=== PATIENT | female | born 1990 | race Caucasian/White ===

== ENCOUNTER 2018-10-17 05:24 | Inpatient (IN) | payer BC ==
[2018-10-17] MEDS ORDERED: NORMAL SALINE 1000 ML 1,000 ML IV ONE ×2 (05:25→06:13)
[2018-10-17] MEDS ORDERED: LORAZEPAM INJ 2 MG/1 ML VIAL IV ONE ×3 (05:26→06:46)
[2018-10-17] MEDS ORDERED: ONDANSETRON HCL INJ/PF 4 MG/2 ML SDV IV ONE (05:31)
--- NOTE | 2018-10-17 05:31 | ER Document Report ---
ED Medical Screen (RME) - General Stated Complaint: POSSIBLE OVERDOSE Notes: Patient is a 27-year-old female that presents to the emergency department for chief complaint of fever and tachycardia. Patient states that she was using methamphetamines earlier today, she smoked them, and she knows she was having a fever, and was not coming down so eventually called EMS per EMS the patient was noted to be febrile, and had a heart rate in the 190s, they administered 2.5 mg of Versed, and gave her Tylenol. Per EMS the patient's heart rate had come down to the 150s after administration of Versed. ROS: Other than noted above, the 12 point review of systems was reviewed with the patient and were negative, all pertinent findings are included in the HPI. PHYSICAL EXAMINATION: Vital signs reviewed. GENERAL: Patient appears anxious on exam, but no immediate distress HEAD: Atraumatic, normocephalic. EYES: Pupils equal round extraocular movements intact, conjunctiva are normal. ENT: Nares patent NECK: Normal range of motion CV: Heart rate tachycardic, regular rhythm LUNGS: No respiratory distress Musculoskeletal: Normal range of motion NEUROLOGICAL: Normal speech PSYCH: Patient is anxious on exam MDM: Patient seen and examined for rapid initial assessment. Vital signs reviewed. A comprehensive ED assessment and evaluation of the patient, analysis of test results and completion of the medical decision making process will be conducted by additional ED providers. *Note is created using voice recognition software and may contain spelling, syntax or grammatical errors.
[2018-10-17 06:07] LABS: HEMATOCRIT 37.3 % (36.0-47.0); HEMOGLOBIN 12.6 g/dL (12.0-15.5); MEAN CORPUSCULAR HGB CONC 33.8 g/dL (32.0-36.0); MEAN CORPUSCULAR VOLUME 83 fl (80-97); PLATELET COUNT 292 10^3/uL (150-450); RED BLOOD COUNT 4.51 10^6/uL (3.72-5.28); RED CELL DISTRIBUTION WIDTH 15.4 % (11.5-14.0); WHITE BLOOD COUNT 16.3 10^3/uL (4.0-10.5)
[2018-10-17 06:11] LABS: ALANINE AMINOTRANSFERASE 75 U/L (9-52); ALBUMIN 3.4 g/dL (3.5-5.0); ALKALINE PHOSPHATASE 64 U/L (38-126); ANION GAP 10 (5-19); ASPARTATE AMINO TRANSFERASE 49 U/L (14-36); BILIRUBIN,DIRECT 0.3 mg/dL (0.0-0.4); BLOOD UREA NITROGEN 20 mg/dL (7-20); CALCIUM 9.2 mg/dL (8.4-10.2); CARBON DIOXIDE 21 mmol/L (22-30); CHLORIDE 106 mmol/L (98-107); CREATINE KINASE 49 U/L (30-135); GLUCOSE 99 mg/dL (75-110); LIPASE 35.4 U/L (23-300); POTASSIUM 3.2 mmol/L (3.6-5.0); SODIUM 137.2 mmol/L (137-145); TOTAL PROTEIN 6.6 g/dL (6.3-8.2)
[2018-10-17] MEDS ORDERED: KETOROLAC TROMETHAMINE INJ/PF 30 MG/1 ML SDV IV ONE (06:14)
[2018-10-17] MEDS ORDERED: VANCOMYCIN HCL INJ 1000 MG VIAL IV ONE (06:16)
[2018-10-17] MEDS ORDERED: CEFTRIAXONE INJ 1000 MG VIAL IV ONE (06:16)
--- NOTE | 2018-10-17 06:18 | RADIOLOGY REPORT (SQ) ---
EXAM DESCRIPTION: XR CHEST 1 VIEW COMPLETED DATE/TME: 10/17/2018 05:26 CLINICAL HISTORY: 27 years, Female, tachycardia Comparison: None FINDINGS: No focal lung consolidation. No pleural effusion. No pneumothorax. Cardiac and mediastinal silhouette is unremarkable. No acute osseous abnormality. Soft tissues are unremarkable. IMPRESSION: No acute findings. No focal lung consolidation.
--- NOTE | 2018-10-17 06:24 | ER Document Report ---
ED General - General Chief Complaint: Possible Overdose Stated Complaint: POSSIBLE OVERDOSE Time Seen by Provider: 10/17/18 06:06 - [facility] Notes: Patient is a 27-year-old female that presents to the emergency department for chief complaint of fever and confusion. Patient presented by EMS from home with report of fevers. She states that for the last week she has had a cough and yesterday she began having fevers. She does not know how high her fever was at home but states "it felt dangerously high". Patient did not have a ride to the hospital which is why she notified EMS. She does endorse methamphetamine use yesterday evening. Patient complaining currently of feeling hot. She states she has a mild bitemporal headache that is throbbing in nature. The headache began yesterday when her fever started. She denies any neck pain or stiffness. She denies any hallucinations. She denies abdominal pain, nausea, vomiting, chest pain and shortness of breath. EMS reported that they were called to the house by patient's friends who were concerned that she was having visual hallucinations after smoking methamphetamine. EMS states that her heart rate at presentation was 190 and she had a temperature of 100.7. Past Medical History: Negative Past Surgical History: D&C Social History: Daily tobacco, daily marijuana, frequent methamphetamine use, denies alcohol Family History: Reviewed and noncontributory for presenting illness Allergies: Reviewed, see documented allergy list. REVIEW OF SYSTEMS: CONSTITUTIONAL : fever No chills diaphoresis recent illness EENT: No vision changes No congestion No sore throat CARDIOVASCULAR: No chest pain No palpitations RESPIRATORY: No shortness of breath cough No difficulty breathing GASTROINTESTINAL: No abdominal pain No nausea No vomiting No diarrhea GENITOURINARY: No dysuria No hematuria No difficulty urinating MUSCULOSKELETAL: No back pain No leg pain No arm pain No neck pain SKIN: No rashes No lesions LYMPHATIC: No swollen, enlarged glands. NEUROLOGICAL: No lightheadedness headache No weakness No paresthesias PSYCHIATRIC: No anxiety No depression PHYSICAL EXAMINATION: Vital signs reviewed, nursing noted reviewed. GENERAL: Well-appearing, well-nourished and in no acute distress. HEAD: Atraumatic, normocephalic. EYES: Eyes appear normal, extraocular movements intact, sclera anicteric, conjunctiva are normal. ENT: nares patent, oropharynx clear without exudates. Moist mucous membranes. NECK: Normal range of motion, supple without lymphadenopathy LUNGS: Breath sounds mild wheezing bilaterally. No accessory muscle use or tachypnea HEART: Tachycardic rate and regular rhythm without murmurs ABDOMEN: Soft, nontender, normoactive bowel sounds. No rebound, guarding, or rigidity. No masses appreciated. EXTREMITIES: Nontender, good range of motion, no pitting or edema. NEUROLOGICAL: No focal neurological deficits. Moves all extremities spontaneously Motor and sensory grossly intact on exam. PSYCH: Tearful, anxious SKIN: Warm, Dry, normal turgor, no rashes or lesions noted on exposed skin Past Medical History - Social History Smoking Status: Current Every Day Smoker Drug Abuse: Methamphetamine Family History: Other - unknown Patient has suicidal ideation: No Patient has homicidal ideation: No Renal/ Medical History: Denies: Hx Peritoneal Dialysis Physical Exam - Vital signs Vitals: Temp Resp 99.9 F 32 H 10/17/18 05:28 10/17/18 05:28 Course - Re-evaluation Re-evalutation: 10/17/18 06:24 Vitals reviewed. Nursing notes reviewed. Patient is awake and mentating appropriately. She is not acutely confused or hallucinating. Temperature at presentation was 99.9. She is significantly tachycardic which may be related to dehydration from fevers and methamphetamine use. Patient was given 1 L normal saline and continues to have a heart rate of 147. Patient will be started on a second liter IV normal saline. Patient given Toradol for continued fever control. Because of the complaint of fevers with confusion and her significant tachycardia patient will be covered with broad-spectrum antibiotics for possible meningitis, she was given Rocephin and vancomycin. Patient's blood pressure currently 100/47 and she is mentating appropriately and protecting her airway. 10/17/18 06:51 Patient reevaluated and has become more agitated. She removed her peripheral IVs and was attempting to leave the emergency room. After discussing my concern for possible meningitis patient is agreeing to stay for further workup. She adamantly believes that she does not have meningitis. She is tearful and agitated still. Patient agreed to have another IV placed. She was given another dose of Ativan for symptomatic management. 10/17/18 07:58 After the second dose of Ativan patient is much calmer. Heart rate has improved to 112. Patient CT brain shows no acute intracranial pathology. She does have a leukocytosis with shift and I am clinically concerned for acute meningitis. I discussed lumbar puncture with patient earlier and prior to the procedure. She did give me verbal consent however she is unable to sign because of the level of sedation from the Ativan she received. Patient requiring lumbar puncture with emergent indication to rule out meningitis. Patient's boyfriend at bedside and procedure was explained to him as well. LP performed without complication, patient lying supine currently in no acute distress. 10/17/18 08:26 Patient's blood pressure has started to decline. She is currently at 88/46. She is somnolent now from medication but will awake to tactile stimuli. Her GCS currently is 10 and she is protecting her airway and not requiring intubation. Her oxygen is 97% on room air and she has normal respirations. Patient's fluids were on 200 and hour and nursing has opened them to continuous wide open bolus. Blood pressure change likely related to catecholamine crash and Ativan. Patient's normal BP is likely in the low 100s given her small frame. Will monitor closely and begin pressors if no response after fluids or BP continues to decline. 10/17/18 09:27 Patient's BP continued to decline. Peripheral Levophed was started and central line was placed. Because of her encephalopathic state she has been trying to bite at the patient monitor. Femoral line was placed because of patient's agitation. She was put in metastases to protect medical equipment. GCS 10. Patient is still protecting her airway and not requiring intubation. Her CSF results are not suggestive of acute meningitis. Urinalysis is still pending. Patient has a normal lactate. 10/17/18 09:42 Patient was taking the mittens off and is still pulling at medical equipment, soft restraints were applied to prevent her from removing her central line and IV. 10/17/18 10:11 Patient's urinalysis shows nitrate positive concerning for acute UTI causing septic shock. She has had 2 episodes of urinary incontinence in the ED and Jett catheter was placed for imobilization and for strict I's and O's. Patient's blood pressure is improved at 100/58 on the levofed. Her care was discussed with Dr. Ford who accepted admission. - Vital Signs Vital signs: Temp Pulse Resp BP Pulse Ox 99.9 F 15 96/60 L 98 10/17/18 05:28 10/17/18 09:45 10/17/18 09:45 10/17/18 09:45 - Laboratory Result Diagrams: 10/17/18 05:24 10/17/18 05:24 Laboratory results interpreted by me: 10/17/18 10/17/18 10/17/18 05:24 05:24 08:45 WBC 16.3 H RDW 15.4 H Seg Neuts % (Manual) 88 H Lymphocytes % (Manual) 4 L Abs Neuts (Manual) 15.0 H Potassium 3.2 L Carbon Dioxide 21 L AST 49 H ALT 75 H Albumin 3.4 L Urine Nitrite POSITIVE H - EKG Interpretation by Me Additional EKG results interpreted by me: 10/17/18 06:26 0530: Sinus tachycardia, rate 147, normal axis, no ectopy Procedures - Central Line Right Femoral Time completed: : Consent obtained: No - emergent Central line pre-insertion: Sterile PPE donned, Chloraprep applied, Sterile drapes applied Central line lumen type: Triple Anesthetic type: 1% Lidocaine mL's of anesthesia: 3 Ultrasound guided: Yes Line secured with sutures: Yes Central line post-insertion: Blood return from lumens, Biopatch applied, Sutured, Sterile dressing applied, Position confirmed w/ CXR Number of attempts: 1 Complications: No - Lumbar Puncture Lumbar puncture Time completed: 07:56 Consent obtained: Yes - verbal Lumbar puncture pre-procedure: Sterile PPE donned, Betadine prep applied, Sterile drapes applied Patient position: Lying Lumbar puncture location: L4 Anesthetic type: 1% Lidocaine w/epi mL's of anesthetic: 2 Amount/type of drainage: 4 mL Number of attempts: 1 Complications: No Notes: 10/17/18 07:57 Patient requiring lumbar puncture to rule out meningitis in the setting of fever and confusion. Verbal consent obtained from patient however she is unable to sign consent because of medication required to control her anxiety and agitation at presentation. LP performed an emergent situation not requiring written consent. Band-Aid placed over puncture site. Critical Care Note - Critical Care Note Total time excluding time spent on procedures (mins): 110 Comments: 110 Minutes of critical care time spent in direct contact evaluating and reevaluating the patient, treating symptoms, reviewing labs and studies and speaking with family and consultants excluding any procedures. Discharge - Discharge Clinical Impression: Septic shock, Encephalopathy, Methamphetamine abuse Urinary tract infection Qualifiers: Urinary tract infection type: site unspecified Hematuria presence: without hematuria Qualified Code(s): N39.0 - Urinary tract infection, site not specified Condition: Stable Disposition: ADMITTED INPATIENT Admitting Provider: Hospitalist Unit Admitted: ICU
[2018-10-17 06:25] LABS: ABSOLUTE LYMPHOCYTES# (MANUAL) 0.7 10^3/uL (0.5-4.7); ABSOLUTE MONOCYTES # (MANUAL) 0.7 10^3/uL (0.1-1.4); BAND NEUTROPHILS % (MANUAL) 4 % (3-5); BASOPHILS % (MANUAL) 0 % (0-2); EOSINOPHILS % (MANUAL) 0 % (0-6); HYPOCHROMASIA SLIGHT; LYMPHOCYTES % (MANUAL) 4 % (13-45); MONOCYTES % (MANUAL) 4 % (3-13); PLATELET COMMENT ADEQUATE; POLYCHROMASIA SLIGHT; SEGMENTED NEUTROPHILS % (MAN) 88 % (42-78); TOTAL CELLS COUNTED 100
[2018-10-17] MEDS ORDERED: LIDOCAINE 1%/EPINEPHRINE INJ 20 ML VIAL INJ ONE (06:25)
[2018-10-17] MEDS ORDERED: POTASSIUM CHLORIDE 10 MEQ CAPSULE.ER PO ONE (06:53)
--- NOTE | 2018-10-17 07:29 | RADIOLOGY REPORT (SQ) ---
EXAM DESCRIPTION: CT of the head without contrast CLINICAL HISTORY: Headache COMPARISON: None available TECHNIQUE: Axial CT of the head obtained from the skull apex to the skull base without contrast. FINDINGS: No acute intracranial hemorrhage identified. No mass, mass effect, shift of the midline, abnormal extra-axial fluid collection or CT evidence of acute ischemic change identified. The ventricular system is unremarkable. No acute abnormalities of the supratentorial white matter, basal ganglia, cerebellum, or brainstem. Mucosal thickening of the paranasal sinuses. No skull fracture identified. Visualized orbits and globes are unremarkable. DLP: 1130.21 mGy-cm IMPRESSION: 1. No acute intracranial abnormality identified. This exam was performed according to our departmental dose-optimization program, which includes automated exposure control, adjustment of the mA and/or kV according to patient size and/or use of iterative reconstruction technique.
[2018-10-17 08:36] LABS: GLUCOSE,CSF 64 mg/dL (40-70); PROTEIN,CSF 40 mg/dL (12-60)
[2018-10-17 09:12] LABS: APPEARANCE ALL TUBES CLEAR; COLOR ALL TUBES COLORLESS; CSF TUBE NUMBER 1; VOLUME TUBE 2 1.5 CC
[2018-10-17 09:13] LABS: CSF TOTAL VOLUME 4.6 CC; RED BLOOD CELL,CSF 1 /uL (0-10); VOLUME TUBE 3 1.1 CC
[2018-10-17 09:14] LABS: WHITE BLOOD CELL,CSF 3 /uL (0-5)
[2018-10-17 09:15] LABS: APPEARANCE ALL TUBES CLEAR; COLOR ALL TUBES COLORLESS; CSF TOTAL VOLUME 4.6 CC; CSF TUBE NUMBER 4; RED BLOOD CELL,CSF 0 /uL (0-10); VOLUME TUBE 2 1.5 CC; VOLUME TUBE 3 1.1 CC
[2018-10-17 09:16] LABS: WHITE BLOOD CELL,CSF 1 /uL (0-5)
[2018-10-17] MEDS: DEXTROSE 5%-WATER 250 ML with NOREPINEPHRINE BITARTRATE 4 MG IV PRN ×4 (09:45→21:38)
[2018-10-17 09:53] LABS: APPEARANCE,URINE CLEAR; BILIRUBIN,URINE NEGATIVE (NEGATIVE); COLOR,URINE YELLOW; GLUCOSE, URINE NEGATIVE (NEGATIVE); KETONES,URINE NEGATIVE (NEGATIVE); LEUKOCYTE ESTERASE,URINE NEGATIVE (NEGATIVE); NITRITE,URINE POSITIVE (NEGATIVE); PROTEIN,URINE NEGATIVE (NEGATIVE); URINE SPECIFIC GRAVITY 1.009; UROBILINOGEN,URINE NEGATIVE mg/dL (<2.0)
--- NOTE | 2018-10-17 09:57 | RADIOLOGY REPORT (SQ) ---
EXAM DESCRIPTION: KUB/ABDOMEN (SINGLE VIEW) COMPLETED DATE/TIME: 10/17/2018 9:46 am REASON FOR STUDY: right femoral line insertion COMPARISON: None. NUMBER OF VIEWS: One view. TECHNIQUE: Supine radiographic image of the abdomen acquired. LIMITATIONS: None. FINDINGS: BOWEL GAS PATTERN: Normal bowel gas pattern. No dilated loops. CALCIFICATIONS: No suspicious calcifications. SOFT TISSUES: No gross mass or suggestion of organomegaly. HARDWARE: None in the abdomen. BONES: No acute fracture. No worrisome bone lesions. OTHER: Vascular catheter projects over the expected location of the right femoral vessels, tip projec ting over the L5 vertebral body in the vicinity of the inferior IVC. IMPRESSION: Vascular catheter projects over the expected location of the right femoral vessels, tip projecting over the L5 vertebral body in the vicinity of the inferior IVC. Consider slight retractio n for placement over the iliac vessels. TECHNICAL DOCUMENTATION: JOB ID: [id number] [employer]- All Rights Reserved Reading location - IP/workstation name: [email or web address]
[2018-10-17 10:22] LABS: URINE BARBITURATES SCREEN NEGATIVE; URINE BENZODIAZEPINES SCREEN UNCONFIRMED POSITIVE; URINE COCAINE SCREEN NEGATIVE; URINE MARIJUANA (THC) SCREEN NEGATIVE; URINE METHADONE SCREEN NEGATIVE; URINE PHENCYCLIDINE SCREEN NEGATIVE
[2018-10-17] MEDS ORDERED: ONDANSETRON HCL INJ/PF 4 MG/2 ML SDV IV PRN (12:26)
[2018-10-17] MEDS ORDERED: ACETAMINOPHEN 650 MG SUPP.RECT PR PRN (12:26)
[2018-10-17] MEDS ORDERED: VANCOMYCIN HCL 0 MG in DEXTROSE 5%-WATER 250 ML IV NR (12:30)
--- NOTE | 2018-10-17 15:05 | PDOC H&P ---
History of Present Illness Admission Date/PCP: 10/17/18 10:22 Patient complains of: Patient presents with acute delirium, low-grade fever, elevated white blood cell count and hypotension. History of Present Illness: Was unable to obtain information from the patient as she was obtunded. I did review available old records but these were minimal. No friends or family were present in the patient's room. YUSRA WATSON is a 27 year old female who was brought to the emergency department by EMS. Friends report that she has had a bad cough for several weeks. They began to note fevers. No actual temperature was noted. The patient reported that it felt very high. The patient also reported methamphetamine use yesterday evening. Other symptoms reported to the emergency room physician include feeling warm, mild bitemporal headache that is throbbing but denies nausea, vomiting, abdominal pain or shortness of breath. EMS reports a low-grade fever of 100.7 F but severe tachycardia with a pulse rate of 190 on the scene. Evaluation in the emergency department revealed acute delirium. Low-grade temperature with hypotension. She did have an altered mental status as well as an elevated white blood cell count. CT scan of the head and lumbar puncture were obtained as well as a chest x-ray. KUB film was also obtained after placement of a femoral central line. The patient was referred to the hospitalist service for admission. Past Medical History Past Medical History: Limited to old records. Cardiac Medical History: Reports: None Pulmonary Medical History: Reports: None EENT Medical History: Reports: None Neurological Medical History: Reports: None Endocrine Medical History: Reports: None Renal/ Medical History: Reports: None Malignancy Medical History: Reports: None GI Medical History: Reports: None Musculoskeltal Medical History: Reports: None Skin Medical History: Reports: None Psychiatric Medical History: Reports: Substance Abuse, Tobacco Dependency Denies: Alcohol Dependency Traumatic Medical History: Reports: None Hematology: Reports: None Infectious Medical History: Reports: None Past Surgical History Past Surgical History: Reports: Other - D&C Social History Information Source: [facility] Records Lives with: Other - Unknown Smoking Status: Current Every Day Smoker Frequency of Alcohol Use: None Hx Recreational Drug Use: Yes Drugs: Marijuana, Other - Methamphetamine Hx Prescription Drug Abuse: No - Advance Directive Resuscitation Status: Full Code Surrogate healthcare decision maker:: No one present for discussion and patient unable to answer question. Family History Family History: Other - Unavailable from the patient. No family or friends present. Parental Family History Reviewed: No - Unavailable from patient Children Family History Reviewed: No - Unavailable from patient Sibling(s) Family History Reviewed.: No - Unavailable from patient Medication/Allergy Home Medications: No Home Medications 10/17/18 Review of Systems ROS unobtainable: Due to mental status Constitutional: PRESENT: other - Obtunded Respiratory: PRESENT: other - Appears to be breathing comfortably. Saturation greater than 90% on room air. Integumentary: ABSENT: diaphoresis, lesions, rash Neurological: PRESENT: other - Obtunded Physical Exam Vital Signs: Temp Pulse Resp BP Pulse Ox 99.9 F 14 91/52 L 99 10/17/18 05:28 10/17/18 12:15 10/17/18 12:15 10/17/18 12:15 Intake & Output 10/16/18 10/17/18 10/18/18 06:59 06:59 06:59 Intake Total 1000 1000 Balance 1000 1000 Weight 57.8 kg General appearance: PRESENT: well-developed, other - Patient is obtunded Head exam: PRESENT: atraumatic, normocephalic Eye exam: PRESENT: conjunctiva pink. ABSENT: scleral icterus Ear exam: PRESENT: normal external ear exam Teeth exam: PRESENT: other - Unable to assess Neck exam: ABSENT: carotid bruit, lymphadenopathy, tenderness Respiratory exam: PRESENT: clear to auscultation dorcas, symmetrical. ABSENT: rales, rhonchi, tachypnea, wheezes Cardiovascular exam: PRESENT: +S1, +S2, tachycardia Pulses: PRESENT: normal radial pulses, normal dorsalis pedis pul GI/Abdominal exam: PRESENT: normal bowel sounds, soft. ABSENT: distended, tenderness Rectal exam: PRESENT: deferred Extremities exam: ABSENT: pedal edema Musculoskeletal exam: PRESENT: normal inspection Neurological exam: PRESENT: other - Obtunded. ABSENT: alert, awake Skin exam: PRESENT: dry, normal color, warm. ABSENT: rash Results Laboratory Results: 10/17/18 05:24 10/17/18 05:24 10/17/18 10/17/18 10/17/18 05:24 05:24 05:24 WBC 16.3 H RBC 4.51 Hgb 12.6 Hct 37.3 MCV 83 MCH 28.0 MCHC 33.8 RDW 15.4 H Plt Count 292 Seg Neutrophils % Not Reportable Lymphocytes % Not Reportable Monocytes % Not Reportable Eosinophils % Not Reportable Basophils % Not Reportable Absolute Neutrophils Not Reportable Absolute Lymphocytes Not Reportable Absolute Monocytes Not Reportable Absolute Eosinophils Not Reportable Absolute Basophils Not Reportable Sodium 137.2 Potassium 3.2 L Chloride 106 Carbon Dioxide 21 L Anion Gap 10 BUN 20 Creatinine 0.84 Est GFR ( Amer) > 60 Est GFR (Non-Af Amer) > 60 Glucose 99 Lactic Acid Calcium 9.2 Total Bilirubin 1.0 AST 49 H ALT 75 H Alkaline Phosphatase 64 Total Protein 6.6 Albumin 3.4 L Lipase 35.4 Serum HCG, Qual NEGATIVE Urine Color Urine Appearance Urine pH Ur Specific [place] Urine Protein Urine Glucose (UA) Urine Ketones Urine Blood Urine Nitrite Ur Leukocyte Esterase Urine WBC (Auto) Fluid Tube Number CSF Volume CSF Appearance CSF Color CSF WBC CSF RBC CSF Glucose CSF Total Protein 10/17/18 10/17/18 10/17/18 06:00 07:52 07:52 WBC RBC Hgb Hct MCV MCH MCHC RDW Plt Count Seg Neutrophils % Lymphocytes % Monocytes % Eosinophils % Basophils % Absolute Neutrophils Absolute Lymphocytes Absolute Monocytes Absolute Eosinophils Absolute Basophils Sodium Potassium Chloride Carbon Dioxide Anion Gap BUN Creatinine Est GFR ( Amer) Est GFR (Non-Af Amer) Glucose Lactic Acid 1.1 Calcium Total Bilirubin AST ALT Alkaline Phosphatase Total Protein Albumin Lipase Serum HCG, Qual Urine Color Urine Appearance Urine pH Ur Specific [place] Urine Protein Urine Glucose (UA) Urine Ketones Urine Blood Urine Nitrite Ur Leukocyte Esterase Urine WBC (Auto) Fluid Tube Number 1 4 CSF Volume 4.6 4.6 CSF Appearance CLEAR CLEAR CSF Color COLORLESS COLORLESS CSF WBC 3 1 CSF RBC 1 0 CSF Glucose CSF Total Protein 10/17/18 10/17/18 07:52 08:45 WBC RBC Hgb Hct MCV MCH MCHC RDW Plt Count Seg Neutrophils % Lymphocytes % Monocytes % Eosinophils % Basophils % Absolute Neutrophils Absolute Lymphocytes Absolute Monocytes Absolute Eosinophils Absolute Basophils Sodium Potassium Chloride Carbon Dioxide Anion Gap BUN Creatinine Est GFR ( Amer) Est GFR (Non-Af Amer) Glucose Lactic Acid Calcium Total Bilirubin AST ALT Alkaline Phosphatase Total Protein Albumin Lipase Serum HCG, Qual Urine Color YELLOW Urine Appearance CLEAR Urine pH 7.0 Ur Specific [place] 1.009 Urine Protein NEGATIVE Urine Glucose (UA) NEGATIVE Urine Ketones NEGATIVE Urine Blood NEGATIVE Urine Nitrite POSITIVE H Ur Leukocyte Esterase NEGATIVE Urine WBC (Auto) 1 Fluid Tube Number CSF Volume CSF Appearance CSF Color CSF WBC CSF RBC CSF Glucose 64 CSF Total Protein 40 10/17/18 10/17/18 05:24 05:24 Creatine Kinase 49 Troponin I < 0.012 Impressions: Chest X-Ray 10/17/18 05:26 IMPRESSION: No acute findings. No focal lung consolidation. Head CT 10/17/18 06:25 IMPRESSION: 1. No acute intracranial abnormality identified. This exam was performed according to our departmental dose-optimization program, which includes automated exposure control, adjustment of the mA and/or kV according to patient size and/or use of iterative reconstruction technique. KUB X-Ray 10/17/18 09:26 IMPRESSION: Vascular catheter projects over the expected location of the right femoral vessels, tip projecting over the L5 vertebral body in the vicinity of the inferior IVC. Consider slight retraction for placement over the iliac vessels. Assessment and Plan - Diagnosis (1) Septic shock Is this a current diagnosis for this admission?: Yes Plan: The patient presents with altered mental status, low-grade fever, leukocytosis and hypotension. She also had abnormal transaminases. She is requiring levo fed. Etiology of shock suspected to be from cystitis. The patient will be on vasopressors. Aggressive fluid resuscitation. Urine and spinal fluid specimens have been sent for culture. Continue to monitor closely and admit to the ICU. (2) Encephalopathy Is this a current diagnosis for this admission?: Yes Plan: Urine drug screen was positive for opiates and benzodiazepines. Methamphetamine screen indeterminate. The encephalopathy is most likely a combination of the substance abuse as well as sepsis. (3) Methamphetamine abuse Is this a current diagnosis for this admission?: Yes Plan: Admitted by patient and supported by friends. We will need to monitor for withdrawal symptoms. (4) Hypokalemia Is this a current diagnosis for this admission?: Yes Plan: Will replenish serum potassium and monitor electrolyte levels. (5) Urinary tract infection Qualifiers: Urinary tract infection type: site unspecified Hematuria presence: without hematuria Qualified Code(s): N39.0 - Urinary tract infection, site not specified Is this a current diagnosis for this admission?: Yes Plan: Urine culture is pending. Specimen was nitrite positive. The patient is currently on antibiotic therapy. We will refine when results of urine, spinal fluid and blood cultures are available. (6) Neutrophilic leukocytosis Is this a current diagnosis for this admission?: Yes Plan: Patient's white blood cell count is 16,000. This is likely due to the sepsis possibly from urinary tract infection. Continue to monitor. Continue antibiotic therapy. (7) Transaminitis Is this a current diagnosis for this admission?: Yes Plan: Mild elevation of transaminases. Continue to monitor. Probably a result of hypotension and decreased perfusion. (8) Substance abuse Is this a current diagnosis for this admission?: Yes Plan: Positive urine screen for opiates and benzodiazepines. These are not reported as regular substances used by the patient. Methamphetamine screen was indeterminate although this information was volunteered by the patient when she was still communicative. - Time Time Spent with patient: 65 minutes Time Spent with patient: 35 or more minutes Medications reviewed and adjusted accordingly: Yes - Inpatient Certification Based on my medical assessment, after consideration of the patient's comorbidities, presenting symptoms, or acuity I expect that the services needed warrant INPATIENT care.: Yes I certify that my determination is in accordance with my understanding of Medicare's requirements for reasonable and necessary INPATIENT services [42 CFR 412.3e].: Yes Medical Necessity: Need For IV Fluids, Need for IV Antibiotics, Risk of Complication if Not Cared For in Hospital
[2018-10-17] MEDS: CHLORPROMAZINE HCL INJ 25 MG/1 ML AMPULE IV SCH ×2 (15:57→22:18)
[2018-10-17] MEDS: HEPARIN SOD (PORCINE) 5,000 UNIT/ML 1 ML SYRINGE SUBCUT SCH ×2 (15:58→21:38)
[2018-10-17] MEDS: VANCOMYCIN HCL 750 MG in DEXTROSE 5%-WATER 250 ML IV SCH (18:08)
[2018-10-17] MEDS: ACETAMINOPHEN 325 MG TABLET PO PRN (21:37)
[2018-10-17] MEDS: FAMOTIDINE INJ/PF 20 MG/2 ML SDV IV SCH (21:37)
[2018-10-17] MEDS ORDERED: DEXTROSE 5%-WATER 250 ML with NOREPINEPHRINE BITARTRATE 4 MG IV PRN ×2 (21:37)
[2018-10-17] MEDS ORDERED: CHLORPROMAZINE HCL INJ 25 MG/1 ML AMPULE ONE (21:59)
--- NOTE | 2018-10-17 23:07 | EKG REPORT ---
SEVERITY:- ABNORMAL ECG - SINUS TACHYCARDIA REPOL ABNRM SUGGESTS ISCHEMIA, DIFFUSE LEADS : Confirmed by: Keli Pollard 17-Oct-2018 23:06:45
[2018-10-18 04:35] LABS: HEMATOCRIT 32.1 % (36.0-47.0); HEMOGLOBIN 10.6 g/dL (12.0-15.5); MEAN CORPUSCULAR HGB CONC 33.1 g/dL (32.0-36.0); MEAN CORPUSCULAR VOLUME 85 fl (80-97); PLATELET COUNT 248 10^3/uL (150-450); RED BLOOD COUNT 3.79 10^6/uL (3.72-5.28); WHITE BLOOD COUNT 23.5 10^3/uL (4.0-10.5)
[2018-10-18 04:58] LABS: ABSOLUTE LYMPHOCYTES# (MANUAL) 2.8 10^3/uL (0.5-4.7); ABSOLUTE MONOCYTES # (MANUAL) 0.9 10^3/uL (0.1-1.4); ABSOLUTE NEUTROPHILS# (MANUAL) 19.7 10^3/uL (1.7-8.2); ANISOCYTOSIS 1+; BASOPHILS % (MANUAL) 0 % (0-2); EOSINOPHILS % (MANUAL) 0 % (0-6); LYMPHOCYTES % (MANUAL) 12 % (13-45); MONOCYTES % (MANUAL) 4 % (3-13); PLATELET COMMENT ADEQUATE; POLYCHROMASIA 1+; SEGMENTED NEUTROPHILS % (MAN) 84 % (42-78); TOTAL CELLS COUNTED 100
[2018-10-18] MEDS: CHLORPROMAZINE HCL INJ 25 MG/1 ML AMPULE IV SCH ×3 (05:03→21:27)
[2018-10-18] MEDS: HEPARIN SOD (PORCINE) 5,000 UNIT/ML 1 ML SYRINGE SUBCUT SCH ×3 (05:03→21:27)
[2018-10-18] MEDS: CEFTRIAXONE 1 GM/D5W RTU 1 GM/50 ML RTUPB IV SCH (05:03)
[2018-10-18] MEDS: VANCOMYCIN HCL 750 MG in DEXTROSE 5%-WATER 250 ML IV SCH ×2 (05:03→18:44)
[2018-10-18 05:29] LABS: ALANINE AMINOTRANSFERASE 54 U/L (9-52); ALBUMIN 2.2 g/dL (3.5-5.0); ALKALINE PHOSPHATASE 48 U/L (38-126); ASPARTATE AMINO TRANSFERASE 25 U/L (14-36); BILIRUBIN,DIRECT 0.2 mg/dL (0.0-0.4); BILIRUBIN,TOTAL 0.2 mg/dL (0.2-1.3); BLOOD UREA NITROGEN 9 mg/dL (7-20); CALCIUM 8.1 mg/dL (8.4-10.2); GLUCOSE 87 mg/dL (75-110); POTASSIUM 3.8 mmol/L (3.6-5.0); TOTAL PROTEIN 4.8 g/dL (6.3-8.2)
[2018-10-18 05:35] LABS: CARBON DIOXIDE 24 mmol/L (22-30); CHLORIDE 115 mmol/L (98-107); SODIUM 142.3 mmol/L (137-145)
[2018-10-18 05:39] LABS: ANION GAP 3 (5-19)
[2018-10-18] MEDS: FAMOTIDINE INJ/PF 20 MG/2 ML SDV IV SCH ×2 (09:14→21:27)
--- NOTE | 2018-10-18 12:01 | PDOC PROGRESS REPORT ---
Subjective Progress Note for:: 10/18/18 Subjective:: Patient seen in the ICU. Nurse reports awake off and on. Current awake, oriented x 3. No po intake this morning, but eating lunch. Received Thorazine at 5.03 am for restlessness. No f/, no cp/sob, no n/v. Denies AGUILERA. Now off Levophed, titrated off at 1 a.m. earlier this morning. Reason For Visit: SEPSIS, CYSTITIS, ACUTE DELIRIUM Physical Exam Vital Signs: Temp Pulse Resp BP Pulse Ox 97.7 F 94 14 99/60 L 98 10/18/18 10:00 10/18/18 10:00 10/18/18 10:18 10/18/18 10:18 10/18/18 10:18 Intake & Output 10/17/18 10/18/18 10/19/18 06:59 06:59 06:59 Intake Total 1000 1626 Output Total 1435 420 Balance 1000 191 -420 Weight 57.8 kg 59.8 kg GENERAL: Well-developed, no acute distress HEENT: Normocephalic/atraumatic NECK supple, no JVD CARDIOVASCULAR: RRR, normal S1-S2, no appreciable murmur LUNGS: CTA bilaterally ABDOMEN: Soft, NT, NL bowel sounds EXTREMITIES: No edema, clubbing, cyanosis NEUROLOGICAL: Alert, oriented x 3, nonfocal Results Laboratory Results: 10/18/18 04:26 10/18/18 04:26 10/18/18 10/18/18 04:26 04:26 WBC 23.5 H RBC 3.79 Hgb 10.6 L Hct 32.1 L MCV 85 MCH 28.0 MCHC 33.1 RDW 16.0 H Plt Count 248 Seg Neutrophils % Not Reportable Lymphocytes % Not Reportable Monocytes % Not Reportable Eosinophils % Not Reportable Basophils % Not Reportable Absolute Neutrophils Not Reportable Absolute Lymphocytes Not Reportable Absolute Monocytes Not Reportable Absolute Eosinophils Not Reportable Absolute Basophils Not Reportable Sodium 142.3 Potassium 3.8 Chloride 115 H Carbon Dioxide 24 Anion Gap 3 L BUN 9 Creatinine 0.69 Est GFR ( Amer) > 60 Est GFR (Non-Af Amer) > 60 Glucose 87 Calcium 8.1 L Magnesium 1.8 Total Bilirubin 0.2 AST 25 ALT 54 H Alkaline Phosphatase 48 Total Protein 4.8 L Albumin 2.2 L 10/17/18 10/17/18 05:24 05:24 Creatine Kinase 49 Troponin I < 0.012 Impressions: Chest X-Ray 10/17/18 05:26 IMPRESSION: No acute findings. No focal lung consolidation. Head CT 10/17/18 06:25 IMPRESSION: 1. No acute intracranial abnormality identified. This exam was performed according to our departmental dose-optimization program, which includes automated exposure control, adjustment of the mA and/or kV according to patient size and/or use of iterative reconstruction technique. KUB X-Ray 10/17/18 09:26 IMPRESSION: Vascular catheter projects over the expected location of the right femoral vessels, tip projecting over the L5 vertebral body in the vicinity of the inferior IVC. Consider slight retraction for placement over the iliac vessels. Assessment and Plan - Diagnosis (1) Septic shock Is this a current diagnosis for this admission?: Yes (2) Encephalopathy Is this a current diagnosis for this admission?: Yes (3) Hypokalemia Is this a current diagnosis for this admission?: Yes (4) Methamphetamine abuse Is this a current diagnosis for this admission?: Yes (5) Substance abuse Is this a current diagnosis for this admission?: Yes (6) Urinary tract infection Qualifiers: Urinary tract infection type: site unspecified Hematuria presence: without hematuria Qualified Code(s): N39.0 - Urinary tract infection, site not specified Is this a current diagnosis for this admission?: Yes - Plan Summary Plan Summary: Blood pressure better but still in the systolic of 90s. She is off pressors, mental status improving. Leukocytosis worsening today, but patient is generally improving. No fevers. We will continue Rocephin for now. There may be a reactive component to the leukocytosis. Will follow CSF, blood and urine culture results. Will continue to monitor in the ICU for 1 more night, consider transferring out in the morning if blood pressure stable, mental status continues to improve. It will also be encouraged if white blood cells is beginning to trend down. Hypokalemia corrected. Follow-up CBC and Chem-7 in a.m.
[2018-10-18] MEDS: ACETAMINOPHEN 325 MG TABLET PO PRN (17:33)
[2018-10-18] MEDS ORDERED: NICOTINE 21 MG/24 HR PATCH.TD24 TD ONE (20:00)
[2018-10-18 21:07] LABS: VANCOMYCIN,TROUGH < 5.0 ug/mL (5.0-20.0)
[2018-10-19] MEDS: VANCOMYCIN HCL 750 MG in DEXTROSE 5%-WATER 250 ML IV SCH ×2 (02:40→09:43)
[2018-10-19 05:03] LABS: ABSOLUTE BASOPHILS # (AUTO) 0.1 10^3/uL (0.0-0.2); ABSOLUTE EOSINOPHILS # (AUTO) 0.2 10^3/uL (0.0-0.6); ABSOLUTE LYMPHOCYTES (AUTO) 2.9 10^3/uL (0.5-4.7); ABSOLUTE MONOCYTES (AUTO) 0.9 10^3/uL (0.1-1.4); ABSOLUTE NEUT (AUTO) 5.6 10^3/uL (1.7-8.2); BASOPHILS % (AUTO) 0.6 % (0-2); EOSINOPHILS % (AUTO) 2.5 % (0-6); HEMATOCRIT 32.1 % (36.0-47.0); HEMOGLOBIN 10.7 g/dL (12.0-15.5); LYMPHOCYTES % (AUTO) 30.2 % (13-45); MEAN CORPUSCULAR HGB CONC 33.3 g/dL (32.0-36.0); MEAN CORPUSCULAR VOLUME 84 fl (80-97); MONOCYTES % (AUTO) 8.9 % (3-13); PLATELET COUNT 262 10^3/uL (150-450); RED BLOOD COUNT 3.81 10^6/uL (3.72-5.28); RED CELL DISTRIBUTION WIDTH 15.6 % (11.5-14.0); SEGMENTED NEUTROPHILS % (AUTO) 57.8 % (42-78); TOTAL CELLS COUNTED % (AUTO) 100 %; WHITE BLOOD COUNT 9.7 10^3/uL (4.0-10.5)
[2018-10-19 05:21] LABS: ALANINE AMINOTRANSFERASE 43 U/L (9-52); ALBUMIN 2.6 g/dL (3.5-5.0); ALKALINE PHOSPHATASE 61 U/L (38-126); ANION GAP 10 (5-19); ASPARTATE AMINO TRANSFERASE 18 U/L (14-36); BILIRUBIN,DIRECT 0.1 mg/dL (0.0-0.4); BILIRUBIN,TOTAL 0.1 mg/dL (0.2-1.3); BLOOD UREA NITROGEN 6 mg/dL (7-20); CALCIUM 8.2 mg/dL (8.4-10.2); CARBON DIOXIDE 20 mmol/L (22-30); CHLORIDE 112 mmol/L (98-107); GLUCOSE 80 mg/dL (75-110); POTASSIUM 3.2 mmol/L (3.6-5.0); SODIUM 142.4 mmol/L (137-145)
[2018-10-19] MEDS ORDERED: POTASSIUM CHLORIDE 10 MEQ CAPSULE.ER PO ONE ×2 (06:00→08:00)
[2018-10-19] MEDS ORDERED: MAGNESIUM SULFATE/D5W 1 GM/100 ML RTUPB IV ONE ×2 (06:20→06:30)
[2018-10-19] MEDS: HEPARIN SOD (PORCINE) 5,000 UNIT/ML 1 ML SYRINGE SUBCUT SCH ×2 (06:22→14:05)
[2018-10-19] MEDS: CEFTRIAXONE 1 GM/D5W RTU 1 GM/50 ML RTUPB IV SCH (06:22)
[2018-10-19] MEDS: CHLORPROMAZINE HCL INJ 25 MG/1 ML AMPULE IV SCH ×2 (06:23→14:04)
[2018-10-19] MEDS: FAMOTIDINE INJ/PF 20 MG/2 ML SDV IV SCH (09:43)
[2018-10-19] MEDS ORDERED: NICOTINE 21 MG/24 HR PATCH.TD24 TD SCH (10:00)
--- NOTE | 2018-10-19 12:30 | PDOC PROGRESS REPORT ---
Subjective Progress Note for:: 10/19/18 Subjective:: Patient seen in the ICU. She is awake, tolerating oral diet. However she reports a current restlessness and "withdraw". She is requesting Suboxone or methadone. Denies crack cocaine use. States she may have taking methamphetamine given to her by a friend but she is not sure. No f/c, no cp/sob, no n/v. Denies AGUILERA. Denies hallucinations. States she is interested in rehab and also needs to talk to mental health specialist. Now off Levophed since 1 a.m. yesterday, 10/18/18 and blood pressure stable. Reason For Visit: SEPSIS, CYSTITIS, ACUTE DELIRIUM Physical Exam Vital Signs: Temp Pulse Resp BP Pulse Ox 98.5 F 91 15 108/60 98 10/19/18 10:00 10/19/18 10:00 10/19/18 10:00 10/19/18 10:00 10/19/18 10:00 Intake & Output 10/18/18 10/19/18 10/20/18 06:59 06:59 06:59 Intake Total 1626 2305 200 Output Total 1435 5285 300 Balance 191 -2980 -100 Weight 59.8 kg 62.2 kg GENERAL: Well-developed, no acute distress HEENT: Normocephalic/atraumatic NECK supple, no JVD CARDIOVASCULAR: RRR, normal S1-S2, no appreciable murmur LUNGS: CTA bilaterally ABDOMEN: Soft, NT, NL bowel sounds EXTREMITIES: No edema, clubbing, cyanosis NEUROLOGICAL: Alert, oriented x 3, nonfocal Results Laboratory Results: 10/19/18 04:47 10/19/18 04:47 10/19/18 10/19/18 10/19/18 04:47 04:47 04:47 WBC 9.7 RBC 3.81 Hgb 10.7 L Hct 32.1 L MCV 84 MCH 28.0 MCHC 33.3 RDW 15.6 H Plt Count 262 Seg Neutrophils % 57.8 Lymphocytes % 30.2 Monocytes % 8.9 Eosinophils % 2.5 Basophils % 0.6 Absolute Neutrophils 5.6 Absolute Lymphocytes 2.9 Absolute Monocytes 0.9 Absolute Eosinophils 0.2 Absolute Basophils 0.1 Sodium 142.4 Potassium 3.2 L Chloride 112 H Carbon Dioxide 20 L Anion Gap 10 BUN 6 L Creatinine 0.65 Est GFR ( Amer) > 60 Est GFR (Non-Af Amer) > 60 Glucose 80 Calcium 8.2 L Magnesium 1.8 Total Bilirubin 0.1 L AST 18 ALT 43 Alkaline Phosphatase 61 Total Protein 5.0 L Albumin 2.6 L 10/17/18 08:45 Catheterized Urine Urine Culture - Final NO GROWTH 2 DAYS 10/17/18 07:52 Cerebral Spinal Fluid - Tube 3 (Csf) Gram Stain - Final 10/17/18 10/17/18 05:24 05:24 Creatine Kinase 49 Troponin I < 0.012 Impressions: Chest X-Ray 10/17/18 05:26 IMPRESSION: No acute findings. No focal lung consolidation. Head CT 10/17/18 06:25 IMPRESSION: 1. No acute intracranial abnormality identified. This exam was performed according to our departmental dose-optimization program, which includes automated exposure control, adjustment of the mA and/or kV according to patient size and/or use of iterative reconstruction technique. KUB X-Ray 10/17/18 09:26 IMPRESSION: Vascular catheter projects over the expected location of the right femoral vessels, tip projecting over the L5 vertebral body in the vicinity of the inferior IVC. Consider slight retraction for placement over the iliac vessels. Assessment and Plan - Diagnosis (1) Septic shock Is this a current diagnosis for this admission?: Yes (2) Encephalopathy Is this a current diagnosis for this admission?: Yes (3) Hypokalemia Is this a current diagnosis for this admission?: Yes (4) Methamphetamine abuse Is this a current diagnosis for this admission?: Yes (5) Substance abuse Is this a current diagnosis for this admission?: Yes (6) Urinary tract infection Qualifiers: Urinary tract infection type: site unspecified Hematuria presence: without hematuria Qualified Code(s): N39.0 - Urinary tract infection, site not specified Is this a current diagnosis for this admission?: Yes (7) Heroin abuse Is this a current diagnosis for this admission?: Yes (8) Restless Is this a current diagnosis for this admission?: Yes - Plan Summary Plan Summary: Blood pressure better and remains off pressors, mental status improved. Leukocytosis also better. No fevers. Will follow CSF, blood and urine culture results. Continue Rocephin for now. Substance abuse and restlessness and request to speak to mental health professional, will consult Dr. Siu. For hypokalemia, patient has received KCl 40 M EQ p.o. x1. Follow-up CBC and Chem-7 in a.m. Will transfer patient out of the ICU to medical bed.
--- NOTE | 2018-10-19 13:31 | PSYCHOLOGICAL NOTE ---
Psych Note - Psych Note Date seen by psych provider: 10/19/18 Time seen by psych provider: 12:55 - Evaluation from [id number]. Psych Note: Reason for Consult: Heroin/Opiate Withdrawal Contact Permissions: OD, Unknown but possibly boyfriend Patient is a 27 year old female who presented to the ED 10/17/18 for fever, confusion and tachycardia after friends called EMS for concerns patient was hallucinating after smoking meth. She was subsequently admitted to hospitalist services for septic shock, encephalopathy, meth abuse, hypokalemia, UTI, neutrophilic leukocytosis, transmaminitis and SA. She is being administered Thorazine 12.5MG IV Q8H for restlessness and withdrawal. Per documentation she requested Suboxone or Methadone. UDS is positive for Opiates, Meth and benzodiazepines (was administered Versed by EMS). Patient admitted she "uses 2-3 bags of heroin a day, IV, has been using for the past 1.5 years and last use was 10/17/18 before she came to the ED." She identified she "had a G Tube when she was 24 so stopped the heroin use, got into a Suboxone program with Dr. Banks at [facility], got off the Suboxone and started using again." She admitted to "smoking meth for recreation, it is not daily." She denied any other MH or SA treatment with the exception of having been to [facility] not long ago because her parents wanted her to go to detox after they found out she was back to using. She denied being seen by the behavioral health team there, said she was monitored and labs done then sent home. She denied being prescribed any other psychiatric medication in the past or current. She reported the following withdrawal symptoms: "restless leg, sneezing, watery eyes, runny nose, I feel like shit, my whole body hurts." When asked about diarrhea she stated "net yet." She denied any seizure history. She stated she was unaware of family history. Patient was alert and oriented to self, person, place, time and situation. Mood was euthymic with congruent affect. There was some restlessness/anxiety. She denied SI/HI. She did not appear to be responding to internal stimuli as evidenced by fair eye contact, answering questions appropriately when addressed, staying on topic, carrying on dialogue conversation and being engaged in evaluation. Thought processes were linear and organized. Conversational speech was within normal limits for rate, tone and prosody. Intellectual abilities are estimated to be average. Insight, judgment and impulse control were fair as evidenced by being honest about drug use. Diagnosis: 292.0 (F11.23) Opioid withdrawal 304.00 (F11.20) Opioid Use Disorder, Severe 304.40 (F15.20) Meth Use Disorder, Moderate to Severe Medication recommendations made by the psychiatric medical provider, Dr. Kip MD., includes: Continue Thorazine 12.5MG IV Q8H Add effexor 37.5MG daily for depression/curb drug cravings/increase energy Add Buspar 10MG twice a day for anxiety/calming effect/act as benzo/depression/sleep Impression/Plan: Patient is cleared from acute psychiatric services. She denied SI/HI and no observed psychosis. She admitted to heroin IV use for past 1.5 years, 2-3 bags daily, last use 10/17/18 and reported withdrawal symptoms. She wanted to get back into a Suboxone Program. Provided outpatient MH resource sheet which highlighted [facility] (noted one in [place] [facility] and they offer Suboxone, IFS MCM for crisis/talk therapy/linkage to other supports/services and [facility]. Stapled [facility] mobile admission business card for detox/rehab services since patient said she has BCBS through parents. Made referral to [facility]. Curt with [facility] was onsite and introduced self to patient. He also made sure face sheet had correct contact information and explained someone would be visiting with her tomorrow. Consulted with Dr. Siu regarding the management and care of patient. Attending hospitalist made aware of recommendations.
[2018-10-19] MEDS ORDERED: VENLAFAXINE HCL 37.5 MG CAP.SR.24H PO SCH (15:00)
[2018-10-19] MEDS ORDERED: VENLAFAXINE HCL 37.5 MG CAP.SR.24H PO ONE (16:26)
[2018-10-19 16:32] VITALS: BP 112/71
[2018-10-19] MEDS ORDERED: BUSPIRONE HCL 10 MG TABLET PO SCH (18:00)
--- NOTE | 2018-10-19 18:40 | PDOC DISCHARGE SUMMARY ---
General - Admit/Disc Date/PCP Admission Date/Primary Care Provider: 10/17/18 10:22 Discharge Date: 10/19/18 - Discharge Diagnosis (1) Septic shock Is this a current diagnosis for this admission?: Yes (2) Encephalopathy Is this a current diagnosis for this admission?: Yes (3) Hypokalemia Is this a current diagnosis for this admission?: Yes (4) Methamphetamine abuse Is this a current diagnosis for this admission?: Yes (5) Substance abuse Is this a current diagnosis for this admission?: Yes (6) Urinary tract infection Is this a current diagnosis for this admission?: Yes (7) Heroin abuse Is this a current diagnosis for this admission?: Yes (8) Restless Is this a current diagnosis for this admission?: Yes - Additional Information Resuscitation Status: Full Code Home Medications: No Home Medications 10/17/18 History of Present Illness History of Present Illness: YUSRA WATSON is a 27 year old female who presented to the ED with headaches, low-grade fever 100.7 and tachycardia. Patient presented apparently in the setting of using methamphetamine. In the ED, she was also found to have leukoc ytosis at 16,000 and subsequently increasing to 23,000. She was also hypotensive and required Levophed drip. Hospital Course Hospital Course: Patient was admitted to ICU. She was managed with IV fluid. There was also concern for UTI she was treated with Rocephin. She also had spinal tap done, but CSF fluid cultures have returned negative. Blood cultures and urine culture have also been negative times 2 days. Leukocytosis also resolved and is now 9 .7. Suspect reactive component to the leukocytosis. Patient doing better, has been titrated off levo fed for over 24 hours now. She reported significant heroin use. She initially stated that she would like rehab, possibly to go from the hospital. She wanted methadone or Suboxone prescribed while she remained in the hospital. She was evaluated by mental health specialist and they made recommendations for treatment with BuSpar, starting Effexor, and treating with Thorazine. However patient was not happy with these, requesting Suboxone or methadone instead. She wished to sign out AMA. She was alert and oriented x3, denied suicidal ideation or homicidal ideation or visual hallucinations. Risks and benefits explained and she verbalized understanding. Patient left AGAINST MEDICAL ADVICE. Physical Exam Vital Signs: Temp Pulse Resp BP Pulse Ox 97.7 F 95 16 112/71 100 10/19/18 16:20 10/19/18 16:20 10/19/18 16:20 10/19/18 16:20 10/19/18 16:20 Intake & Output 10/18/18 10/19/18 10/20/18 06:59 06:59 06:59 Intake Total 1626 2305 600 Output Total 1435 5285 300 Balance 191 -2980 300 Weight 59.8 kg 62.2 kg GENERAL: Well-developed, no acute distress HEENT: Normocephalic/atraumatic NECK supple, no JVD CARDIOVASCULAR: RRR, normal S1-S2, no appreciable murmur LUNGS: CTA bilaterally ABDOMEN: Soft, NT, NL bowel sounds EXTREMITIES: No edema, clubbing, cyanosis NEUROLOGICAL: Alert, oriented x 3, nonfocal Results Laboratory Results: 10/19/18 04:47 10/19/18 04:47 10/19/18 10/19/18 10/19/18 04:47 04:47 04:47 WBC 9.7 RBC 3.81 Hgb 10.7 L Hct 32.1 L MCV 84 MCH 28.0 MCHC 33.3 RDW 15.6 H Plt Count 262 Seg Neutrophils % 57.8 Lymphocytes % 30.2 Monocytes % 8.9 Eosinophils % 2.5 Basophils % 0.6 Absolute Neutrophils 5.6 Absolute Lymphocytes 2.9 Absolute Monocytes 0.9 Absolute Eosinophils 0.2 Absolute Basophils 0.1 Sodium 142.4 Potassium 3.2 L Chloride 112 H Carbon Dioxide 20 L Anion Gap 10 BUN 6 L Creatinine 0.65 Est GFR ( Amer) > 60 Est GFR (Non-Af Amer) > 60 Glucose 80 Calcium 8.2 L Magnesium 1.8 Total Bilirubin 0.1 L AST 18 ALT 43 Alkaline Phosphatase 61 Total Protein 5.0 L Albumin 2.6 L 10/17/18 07:52 Cerebral Spinal Fluid - Tube 3 (Csf) Gram Stain - Final 10/17/18 08:45 Catheterized Urine Urine Culture - Final NO GROWTH 2 DAYS 10/17/18 10/17/18 05:24 05:24 Creatine Kinase 49 Troponin I < 0.012 Impressions: Chest X-Ray 10/17/18 05:26 IMPRESSION: No acute findings. No focal lung consolidation. Head CT 10/17/18 06:25 IMPRESSION: 1. No acute intracranial abnormality identified. This exam was performed according to our departmental dose-optimization program, which includes automated exposure control, adjustment of the mA and/or kV according to patient size and/or use of iterative reconstruction technique. KUB X-Ray 10/17/18 09:26 IMPRESSION: Vascular catheter projects over the expected location of the right femoral vessels, tip projecting over the L5 vertebral body in the vicinity of the inferior IVC. Consider slight retraction for placement over the iliac vessels. Qualifiers - * PATIENT BEING DISCHARGED WITH ANY OF THE FOLLOWING DIAGNOSIS: No
== END 2018-10-19 17:00 | disposition left against medical advice (07) | DRG 871 ==
LOC: ER 05:24 → EH 10:22 → ICU 21:00 → 4N 10-19 16:11
PROVIDERS: ADMIT Hospitalist; ATTEND Internal Medicine
PROC: 06HY33Z Insertion of Infusion Device into Lower Vein, Percutaneous Approach (ICD-10-PCS; principal; 2018-10-17)
PROC: 009U3ZX Drainage of Spinal Canal, Percutaneous Approach, Diagnostic (ICD-10-PCS; 2018-10-17)
DX: A41.9 Sepsis, unspecified organism (principal); R65.21 Severe sepsis with septic shock; N39.0 Urinary tract infection, site not specified; G93.49 Other encephalopathy; F11.23 Opioid dependence with withdrawal; F11.20 Opioid dependence, uncomplicated; F15.20 Other stimulant dependence, uncomplicated; R50.9 Fever, unspecified; E87.6 Hypokalemia; D72.828 Other elevated white blood cell count; R74.0 Nonspecific elevation of levels of transaminase and lactic acid dehydrogenase [LDH]; F17.210 Nicotine dependence, cigarettes, uncomplicated
CPT/HCPCS: 36415; 51701; 51702; 70450; 71045; 74018; 80048; 80053; 80076; 80202; 80307; 81001; 82550; 82945; 83605; 83690; 83735; 84157; 84484; 84703; 85025; 87040; 87070; 87086; 87205; 89050; 93005; 93010; 96361; 96365; 96366; 96367; 96375; 96376; 99291; 99292; C1751; G0480; J0696; J1644; J1885; J2060; J2405; J3230; J3370; J3475; J3490; J7030; J7060; S0028

== ENCOUNTER 2018-10-20 18:12 | Emergency (ER) | payer BC ==
--- NOTE | 2018-10-20 18:14 | ER Document Report ---
ED Medical Screen (RME) - General Stated Complaint: HEADACHE Time Seen by Provider: 10/20/18 18:13 Mode of Arrival: Medic Information source: Emergency Med Personnel Notes: PT PRESENTS VIA EMS FOR AGUILERA. REPORTS HX OF IV DRUG USE, METH, HASNT USED FOR 4 DAYS. WAS SEEN/EVALUATED IN THE ED YESTERDAY, LP WAS DONE, CHECKED OUT AMA. BACK TODAY FOR AGUILERA, DENIES OTHER SX SUCH F/V/D. RECEIVED TYLENOL BY EMS I have greeted and performed a rapid initial assessment of this patient. A comprehensive ED assessment and evaluation of the patient, analysis of test results and completion of the medical decision making process will be conducted by additional ED providers. TRAVEL OUTSIDE OF THE [place] IN LAST 30 DAYS: No - Related Data Allergies/Adverse Reactions: No Known Allergies Allergy (Unverified 10/18/18 07:48) Past Medical History Renal/ Medical History: Denies: Hx Peritoneal Dialysis Past Surgical History: Reports: Other - D&C Physical Exam - Vital signs Vitals: Temp Pulse Resp BP Pulse Ox 98.2 F 77 18 120/56 L 99 10/20/18 18:29 10/20/18 18:29 10/20/18 18:29 10/20/18 18:29 10/20/18 18:29 Course - Vital Signs Vital signs: Temp Pulse Resp BP Pulse Ox 98.2 F 77 18 120/56 L 99 10/20/18 18:29 10/20/18 18:29 10/20/18 18:29 10/20/18 18:29 10/20/18 18:29
[2018-10-20 23:05] LABS: ABSOLUTE EOSINOPHILS # (AUTO) 0.1 10^3/uL (0.0-0.6); ABSOLUTE LYMPHOCYTES (AUTO) 2.5 10^3/uL (0.5-4.7); ABSOLUTE MONOCYTES (AUTO) 0.5 10^3/uL (0.1-1.4); BASOPHILS % (AUTO) 0.5 % (0-2); HEMATOCRIT 36.9 % (36.0-47.0); HEMOGLOBIN 12.4 g/dL (12.0-15.5); LYMPHOCYTES % (AUTO) 30.4 % (13-45); MEAN CORPUSCULAR HEMOGLOBIN 28.3 pg (27.0-33.4); MEAN CORPUSCULAR HGB CONC 33.7 g/dL (32.0-36.0); MEAN CORPUSCULAR VOLUME 84 fl (80-97); MONOCYTES % (AUTO) 6.4 % (3-13); PLATELET COUNT 363 10^3/uL (150-450); RED BLOOD COUNT 4.38 10^6/uL (3.72-5.28); RED CELL DISTRIBUTION WIDTH 15.6 % (11.5-14.0); SEGMENTED NEUTROPHILS % (AUTO) 61.7 % (42-78); TOTAL CELLS COUNTED % (AUTO) 100 %; WHITE BLOOD COUNT 8.2 10^3/uL (4.0-10.5)
[2018-10-20 23:12] LABS: AMORPHOUS SEDIMENT,URINE TRACE /HPF; APPEARANCE,URINE CLOUDY; BILIRUBIN,URINE NEGATIVE (NEGATIVE); COLOR,URINE YELLOW; GLUCOSE, URINE NEGATIVE (NEGATIVE); KETONES,URINE NEGATIVE (NEGATIVE); LEUKOCYTE ESTERASE,URINE NEGATIVE (NEGATIVE); NITRITE,URINE NEGATIVE (NEGATIVE); PROTEIN,URINE NEGATIVE (NEGATIVE); URINE SPECIFIC GRAVITY 1.019; UROBILINOGEN,URINE NEGATIVE mg/dL (<2.0)
[2018-10-20 23:25] LABS: ALANINE AMINOTRANSFERASE 42 U/L (9-52); ALBUMIN 3.7 g/dL (3.5-5.0); ALKALINE PHOSPHATASE 54 U/L (38-126); ANION GAP 10 (5-19); ASPARTATE AMINO TRANSFERASE 15 U/L (14-36); BILIRUBIN,DIRECT 0.1 mg/dL (0.0-0.4); BILIRUBIN,TOTAL 0.4 mg/dL (0.2-1.3); BLOOD UREA NITROGEN 10 mg/dL (7-20); CALCIUM 9.5 mg/dL (8.4-10.2); CARBON DIOXIDE 25 mmol/L (22-30); CHLORIDE 104 mmol/L (98-107); GLUCOSE 86 mg/dL (75-110); POTASSIUM 4.3 mmol/L (3.6-5.0); SODIUM 139.1 mmol/L (137-145)
[2018-10-21] MEDS ORDERED: KETOROLAC TROMETHAMINE INJ/PF 30 MG/1 ML SDV IV ONE (00:55)
[2018-10-21] MEDS ORDERED: METOCLOPRAMIDE HCL INJ/PF 10 MG/2 ML SDV IV ONE (00:55)
--- NOTE | 2018-10-21 01:53 | ER Document Report ---
ED Headache - General Chief Complaint: Headache Stated Complaint: HEADACHE Time Seen by Provider: 10/20/18 18:13 Mode of Arrival: Medic Notes: Patient is a 27-year-old female with past medical history of polysubstance a buse, no other chronic medical problems who presents with a headache. Patient was recently hospitalized on 10/18, left AMA on 10/20. She had initially been hospitalized for fever and confusion. During her evaluation she underwent a lumbar puncture and CT of the head. Lumbar puncture results found to be completely normal, CT the head clear. Patient eventually left AGAINST MEDICAL ADVICE that she was not satisfied with the care she was receiving per her report patient presents today stating that she has had a global, throbbing, moderate to severe intensity headache that has been ongoing since yesterday. She states the headache is worsened by standing, effectively resolves when she lies flat. She denies any confusion, focal weakness, numbness, vomiting or confusion. No head trauma. States that she has a history of headaches but none similar to this in the past. She has not yet followed up with her primary care physician. She states that she has not used any illicit substances since being discharged from the hospital. TRAVEL OUTSIDE OF THE [place] IN LAST 30 DAYS: No - Related Data Allergies/Adverse Reactions: No Known Allergies Allergy (Unverified 10/18/18 07:48) Past Medical History - General Information source: Patient, Emergency Med Personnel - Social History Smoking Status: Current Every Day Smoker Frequency of alcohol use: None Drug Abuse: Heroin, Methamphetamine Family History: Reviewed & Not Pertinent, Other - Unavailable from the patient. No family or friends present. Patient has suicidal ideation: No Patient has homicidal ideation: No Renal/ Medical History: Denies: Hx Peritoneal Dialysis Past Surgical History: Reports: Other - D&C Review of Systems - Review of Systems Notes: Constitutional: Negative for fever. HENT: Negative for sore throat. Eyes: Negative for visual changes. Cardiovascular: Negative for chest pain. Respiratory: Negative for shortness of breath. Gastrointestinal: Negative for abdominal pain, vomiting or diarrhea. Genitourinary: Negative for dysuria. Musculoskeletal: Negative for back pain. Skin: Negative for rash. Neurological: Positive for headache 10 point ROS negative except as marked above and in HPI. Physical Exam - Vital signs Vitals: Temp Pulse Resp BP Pulse Ox 98.2 F 77 18 120/56 L 99 03/25/19 18:29 10/20/18 18:29 10/20/18 18:29 10/20/18 18:29 10/20/18 18:29 Interpretation: Normal Notes: PHYSICAL EXAMINATION: GENERAL: Well-appearing, well-nourished and in no acute distress. HEAD: Atraumatic, normocephalic. EYES: Pupils equal round and reactive to light, extraocular movements intact, sclera anicteric, conjunctiva are normal. ENT: nares patent, oropharynx clear without exudates. Moist mucous membranes. NECK: Normal range of motion, supple without lymphadenopathy, no meningismus LUNGS: Breath sounds clear to auscultation bilaterally and equal. No wheezes rales or rhonchi. HEART: Regular rate and rhythm without murmurs ABDOMEN: Soft, nontender, normoactive bowel sounds. No guarding, no rebound. No masses appreciated. EXTREMITIES: Normal range of motion, no pitting or edema. No cyanosis. NEUROLOGICAL: Face symmetric. Tongue protrudes midline. Extraocular motions intact. Pupils are 2 mm and equally reactive. Normal speech, normal gait. 5 out of 5 strength in both the distal and proximal upper and lower extremities bilaterally. Sensation is grossly intact throughout. Finger to nose testing normal. Pronator drift normal. PSYCH: Normal mood, normal affect. SKIN: Warm, Dry, normal turgor, no rashes or lesions noted. Course - Re-evaluation Re-evalutation: 10/21/18 01:51 Presentation of a headache that appears most consistent with post lumbar pun cture headache. Headache was not maximal in onset, patient has no focal neurologic deficits, no nuchal rigidity, vital signs within normal limits, no papilledema, and patient is overall well in appearance. Headache is positional in nature, not present with the patient is lying flat. Based on clinical history and examination I do not suspect an acute subarachnoid hemorrhage, dural venous sinus thrombosis, acute meningitis, or intercranial mass. Patient did have both a lumbar puncture and CT of the head within the past 3 days which were noted to be unremarkable. Patient had complete resolution of headache with lying flat and receiving Toradol and metoclopramide. At this time will dischar ge with return precautions and follow-up recommendations. Verbal discharge instructions given a the bedside and opportunity for questions given. Medication warnings reviewed. Patient is in agreement with this plan and has verbalized understanding of return precautions and the need for primary care follow-up in the next 24-72 hours. - Vital Signs Vital signs: Temp Pulse Resp BP Pulse Ox 98.7 F 67 18 123/67 99 10/21/18 01:57 10/21/18 01:57 10/21/18 01:57 10/21/18 01:57 10/21/18 01:57 - Laboratory Result Diagrams: 10/20/18 22:50 10/20/18 22:50 Laboratory results interpreted by me: 10/20/18 22:50 RDW 15.6 H Discharge - Discharge Clinical Impression: Post lumbar puncture headache, Substance abuse Headache Qualifiers: Headache type: unspecified Headache chronicity pattern: acute headache Intractability: not intractable Qualified Code(s): R51 - Headache Condition: Good Disposition: HOME, SELF-CARE Additional Instructions: Your headache is likely due to the lumbar puncture that you underwent 3 days ago. These types of headaches can take up to 10 days to resolve completely but generally is all been under 1 week per the best treatment is to lie flat, drink caffeinated substances such as coffee, and use [id number] medications such as Tylenol or ibuprofen. We also discussed today your history of opiate abuse. Please never use opiates of any kind. Over 200 people every day in the [place] from opiate overdoses. Do not become a statistic. You should urgently seek rehab or a similar resource. You can call 8-[facility] to find local resources.
[2018-10-21 01:58] VITALS: BP 123/67
== END 2018-10-21 01:58 | disposition home or self-care (01) ==
LOC: ER 18:12
DX: G97.1 Other reaction to spinal and lumbar puncture (principal); F19.10 Other psychoactive substance abuse, uncomplicated; F17.200 Nicotine dependence, unspecified, uncomplicated
CPT/HCPCS: 99284; 96374; 96375; 36415; 85025; 80053; 81001; J1885; J2765

== ENCOUNTER 2019-01-30 01:05 | Observation (INO) | payer SELFPAY ==
[2019-01-30] MEDS ORDERED: ONDANSETRON HCL INJ/PF 4 MG/2 ML SDV IV ONE (04:38)
[2019-01-30] MEDS ORDERED: MORPHINE SULFATE 10 MG/ML INJ IV ONE ×3 (04:38→06:41)
--- NOTE | 2019-01-30 04:41 | ER Document Report ---
ED Medical Screen (RME) - General Chief Complaint: Insect Bite Stated Complaint: BUG BITE, LEFT SIDE NECK Time Seen by Provider: 01/30/19 04:31 Notes: 28-year-old female chief complaint of swelling, pain, redness to the left side of her neck for the past few days. Area actually popped and started draining a lot of pus out of it. Denies fever or chills. Reports previous history of heroin abuse and she has injected in the same area in the past. Mother at bedside. Patient denies any other complaints. TRAVEL OUTSIDE OF THE [place] IN LAST 30 DAYS: No - Related Data Allergies/Adverse Reactions: No Known Allergies Allergy (Unverified 10/18/18 07:48) Past Medical History Renal/ Medical History: Denies: Hx Peritoneal Dialysis Past Surgical History: Reports: Other - D&C Physical Exam - Vital signs Vitals: Temp Pulse Resp BP Pulse Ox 97.7 F 79 15 94/61 L 97 01/30/19 01:01/30/19 01:01/30/19 01:01/30/19 01:33 01/30/19 01:33 - Skin Skin irregularity: Abscess - There appears to be draining MRSA abscess over the left neck with surrounding cellulitis, patient has difficulty turning her head back and forth Course - Re-evaluation Re-evalutation: Because of patient's difficulty turning her head, pain persisting despite draining, history of IV drug abuse, and the extent of the cellulitis and abscess discussed with mom and patient and decision was made to CAT scan the area to evaluate the neck. I have greeted and performed a rapid initial assessment of this patient. A comprehensive ED assessment and evaluation of the patient, analysis of test results and completion of the medical decision making process will be conducted by additional ED providers. - Vital Signs Vital signs: Temp Pulse Resp BP Pulse Ox 97.7 F 79 15 94/61 L 97 01/30/19 01:01/30/19 01:01/30/19 01:01/30/19 01:01/30/19 01:33
[2019-01-30 05:53] LABS: ABSOLUTE BASOPHILS # (AUTO) 0.1 10^3/uL (0.0-0.2); ABSOLUTE EOSINOPHILS # (AUTO) 0.3 10^3/uL (0.0-0.6); ABSOLUTE LYMPHOCYTES (AUTO) 2.4 10^3/uL (0.5-4.7); ABSOLUTE MONOCYTES (AUTO) 0.7 10^3/uL (0.1-1.4); ABSOLUTE NEUT (AUTO) 3.8 10^3/uL (1.7-8.2); BASOPHILS % (AUTO) 0.9 % (0-2); HEMATOCRIT 40.6 % (36.0-47.0); HEMOGLOBIN 13.2 g/dL (12.0-15.5); LYMPHOCYTES % (AUTO) 33.1 % (13-45); MEAN CORPUSCULAR HEMOGLOBIN 27.6 pg (27.0-33.4); MEAN CORPUSCULAR HGB CONC 32.4 g/dL (32.0-36.0); MEAN CORPUSCULAR VOLUME 85 fl (80-97); MONOCYTES % (AUTO) 10.1 % (3-13); PLATELET COUNT 400 10^3/uL (150-450); RED BLOOD COUNT 4.78 10^6/uL (3.72-5.28); RED CELL DISTRIBUTION WIDTH 16.2 % (11.5-14.0); SEGMENTED NEUTROPHILS % (AUTO) 51.9 % (42-78); TOTAL CELLS COUNTED % (AUTO) 100 %; WHITE BLOOD COUNT 7.3 10^3/uL (4.0-10.5)
[2019-01-30 06:17] LABS: ANION GAP 6 (5-19); BLOOD UREA NITROGEN 8 mg/dL (7-20); CALCIUM 9.1 mg/dL (8.4-10.2); CARBON DIOXIDE 29 mmol/L (22-30); CHLORIDE 105 mmol/L (98-107); GLUCOSE 79 mg/dL (75-110); POTASSIUM 4.8 mmol/L (3.6-5.0); SODIUM 139.6 mmol/L (137-145)
[2019-01-30] MEDS ORDERED: VANCOMYCIN HCL INJ 1000 MG VIAL IV ONE (06:41)
--- NOTE | 2019-01-30 06:52 | ER Document Report ---
ED General - General Chief Complaint: Insect Bite Stated Complaint: BUG BITE, LEFT SIDE NECK Time Seen by Provider: 01/30/19 04:31 Primary Care Provider: GÓMEZ ODOM MD [Primary Care Provider] - Follow up as needed TRAVEL OUTSIDE OF THE [place] IN LAST 30 DAYS: No - HPI Notes: Patient is a 28-year-old female who presents emergency department for evaluation. She states that she developed a large abscess on the left side of her neck. It started 4 days ago. She states it started draining spontaneously. She denies any eugenie fevers or chills. No nausea or vomiting. She has significant amount of pain. She does have a history of IV drug abuse. She admits to injecting heroin in that area, but states that the last time was over 2 weeks ago. - Related Data Allergies/Adverse Reactions: No Known Allergies Allergy (Unverified 10/18/18 07:48) Past Medical History - General Information source: Patient - Social History Smoking Status: Current Every Day Smoker Drug Abuse: Heroin Family History: Reviewed & Not Pertinent, Other - Unavailable from the patient. No family or friends present. Patient has suicidal ideation: No Patient has homicidal ideation: No Renal/ Medical History: Denies: Hx Peritoneal Dialysis Past Surgical History: Reports: Other - D&C Review of Systems - Review of Systems Constitutional: No symptoms reported EENT: No symptoms reported Cardiovascular: No symptoms reported Respiratory: No symptoms reported Gastrointestinal: No symptoms reported Genitourinary: No symptoms reported Musculoskeletal: No symptoms reported Skin: See HPI Neurological/Psychological: No symptoms reported Physical Exam - Vital signs Vitals: Temp Pulse Resp BP Pulse Ox 97.7 F 79 15 94/61 L 97 01/30/19 01:33 01/30/19 01:33 01/30/19 01:33 01/30/19 01:33 01/30/19 01:33 - Notes Notes: Patient is a 28-year-old female who appears her stated age in no acute distress. Vital signs reviewed, please refer to chart. Head is normocephalic, atraumatic. Pupils equal round, reactive to light. Examination of the anterior neck yields a 2 cm circular lesion in her left anterior neck, consistent with open the abscess. There is approximately 6 to 7 cm of surrounding erythema and induration. Small amount of adenopathy noted in the supraclavicular space. Heart is regular rate and rhythm. Lungs are clear to auscultation bilaterally. Abdomen is soft, nontender, normoactive bowel sounds throughout. Extremities without cyanosis, clubbing. Posterior calves are nontender. Peripheral pulses are equal. Skin is warm and dry. Patient is awake, alert, neurological exam is nonfocal. Course - Re-evaluation Re-evalutation: 01/30/19 06:50 Patient presents emergency department for evaluation. She had initial laboratory investigations as ordered through triage. She was given some pain medication as well. I did obtain wound culture as well as blood cultures. Patient was given a dose of IV vancomycin. CT scan of the neck was ordered, report pending at this time. We will continue to follow. 01/30/19 08:42 Consult was placed to Dr. Freeman at 0745. He was in the department evaluating the patient at 805. He did review the CT scans images. It is clear that there is a retained needle in this patient's neck. He went and evaluated the patient, and will admit her for further care. - Vital Signs Vital signs: Temp Pulse Resp BP Pulse Ox 97.6 F 76 16 104/58 L 100 01/30/19 06:00 01/30/19 06:00 01/30/19 06:00 01/30/19 06:00 01/30/19 06:00 - Laboratory Result Diagrams: 01/30/19 05:30 01/30/19 05:30 Laboratory results interpreted by me: 01/30/19 05:30 RDW 16.2 H Discharge - Discharge Clinical Impression: Neck abscess, Retained foreign body Condition: Stable Disposition: ADMITTED OBSERVATION Admitting Provider: Surgicalist - Dr. Freeman Unit Admitted: Surgical Floor Referrals: GÓMEZ ODOM MD [Primary Care Provider] - Follow up as needed
--- NOTE | 2019-01-30 06:55 | RADIOLOGY REPORT (SQ) ---
EXAM DESCRIPTION: CT NECK CHEST WITH IV CONTRAST COMPLETED DATE/TME: 01/30/2019 04:38 CLINICAL HISTORY: 28 years, Female, abscess, neck swelling COMPARISON: None TECHNIQUE: Axial CT images of the neck were obtained after the administration of IV contrast. Sagittal and coronal reformats were performed. DLP 191 Images stored on PACS. All CT scanners at this facility use dose modulation, iterative reconstruction, and/or weight based dosing when appropriate to reduce radiation dose to as low as reasonably achievable (ALARA). [facility]: Dose Right [facility]: CareDose [facility]: Dose Right [facility]: Teradose 4D [facility]: BaroFold LIMITATIONS: None. FINDINGS: There is 1.1 x 0.76 cm abscess along the left side of the neck adjacent to the left sternocleidomastoid muscle at the level of the thyroid cartilage at C6-C7 (axial image 57). There is no concerning asymmetry along the aerodigestive tract. The parotid, submandibular and thyroid glands appear unremarkable. The palatine tonsils appear normal. The prevertebral soft tissues are normal. The parapharyngeal space appears unremarkable. Vascular enhancement is normal. The bones are unremarkable. IMPRESSION: Abscess along the left side of the neck at the level of the thyroid cartilage. TECHNICAL DOCUMENTATION: Quality ID # [id number]: Final reports with documentation of one or more dose reduction techniques (e.g., Automated exposure control, adjustment of the mA and/or kV according to patient size, use of iterative reconstruction technique) copyright 2010 [employer]- All Rights Reserved
--- NOTE | 2019-01-30 08:29 | PDOC H&P ---
History of Present Illness Admission Date/PCP: GÓMEZ ODOM MD Patient complains of: Neck abscess History of Present Illness: YUSRA WATSON is a 28 year old female Who presents to the emergency department via ground rescue complaining of a several day history of left neck swelling, pain, drainage and redness. Patient is a known IV drug abuser and states that she was previously injecting heroin in her left neck then stopped and started on her right neck. Patient was seen in the emergency department where she is found to have a abscess actively draining with ulceration. CT scan of the neck which revealed a superficial soft tissue abscess. Dr. Freeman was consulted, who promptly saw the patient in the emergency department. He reviewed the CT scan and identified a foreign body consistent with a needle fragment in the left neck. Patient was felt to require incision and drainage, debridement foreign body removal in the operating room, and arrangements were made accordingly. Past Medical History Past Medical History: History of encephalopathy, urinary tract infection; IVDA Past Surgical History Past Surgical History: None Past Surgical History: Reports: Other - D&C Social History Information Source: Patient Smoking Status: Current Every Day Smoker Frequency of Alcohol Use: None Hx Recreational Drug Use: Yes Drugs: Heroin, Marijuana, Other Hx Prescription Drug Abuse: Yes Family History Family History: Reviewed & Not Pertinent, Other - Unavailable from the patient. No family or friends present. Parental Family History Reviewed: Yes Children Family History Reviewed: Yes Sibling(s) Family History Reviewed.: Yes Medication/Allergy Home Medications: No Home Medications 10/17/18 Allergies/Adverse Reactions: No Known Allergies Allergy (Unverified 10/18/18 07:48) Review of Systems Constitutional: PRESENT: night sweats, weakness Eyes: ABSENT: visual disturbances Ears: ABSENT: hearing changes Cardiovascular: ABSENT: chest pain, dyspnea on exertion, edema, orthropnea, palpitations Respiratory: ABSENT: cough, hemoptysis Gastrointestinal: ABSENT: abdominal pain, constipation, diarrhea, hematemesis, hematochezia, nausea, vomiting Genitourinary: ABSENT: dysuria, hematuria Musculoskeletal: PRESENT: as per HPI Integumentary: PRESENT: as per HPI Psychiatric: PRESENT: other - History of altered mentation due to sepsis in September 2018 Physical Exam Vital Signs: Temp Pulse Resp BP Pulse Ox 97.6 F 76 16 104/58 L 100 01/30/19 06:00 01/30/19 06:00 01/30/19 06:00 01/30/19 06:00 01/30/19 06:00 Intake & Output 01/29/19 01/30/19 01/31/19 06:59 06:59 06:59 Weight 54 kg General appearance: PRESENT: no acute distress Head exam: PRESENT: normocephalic Eye exam: PRESENT: EOMI Mouth exam: PRESENT: dry mucosa Neck exam: PRESENT: other - Actively draining 1/2 cm open ulcerated radial and wound base of left neck, compartment four, mild cellulitis; anterior aspect of the mid sternocleidomastoid muscle multiple stick sites consistent with venipuncture Respiratory exam: PRESENT: clear to auscultation dorcas Cardiovascular exam: PRESENT: RRR Pulses: PRESENT: normal carotid pulses GI/Abdominal exam: PRESENT: soft Rectal exam: PRESENT: deferred Extremities exam: PRESENT: full ROM Musculoskeletal exam: PRESENT: ambulatory Neurological exam: PRESENT: awake, oriented to person, oriented to place, oriented to time, oriented to situation Psychiatric exam: PRESENT: anxious Skin exam: PRESENT: dry Results Laboratory Results: 01/30/19 05:30 01/30/19 05:30 01/30/19 01/30/19 01/30/19 05:30 05:30 05:30 WBC 7.3 RBC 4.78 Hgb 13.2 Hct 40.6 MCV 85 MCH 27.6 MCHC 32.4 RDW 16.2 H Plt Count 400 Seg Neutrophils % 51.9 Lymphocytes % 33.1 Monocytes % 10.1 Eosinophils % 4.0 Basophils % 0.9 Absolute Neutrophils 3.8 Absolute Lymphocytes 2.4 Absolute Monocytes 0.7 Absolute Eosinophils 0.3 Absolute Basophils 0.1 Sodium 139.6 Potassium 4.8 Chloride 105 Carbon Dioxide 29 Anion Gap 6 BUN 8 Creatinine 0.53 Est GFR ( Amer) > 60 Est GFR (Non-Af Amer) > 60 Glucose 79 Calcium 9.1 Serum HCG, Qual NEGATIVE Impressions: Soft Tissue Neck CT 01/30/19 04:38 IMPRESSION: Abscess along the left side of the neck at the level of the thyroid cartilage. TECHNICAL DOCUMENTATION: Quality ID # 436: Final reports with documentation of one or more dose reduction techniques (e.g., Automated exposure control, adjustment of the mA and/or kV according to patient size, use of iterative reconstruction technique) copyright 2011 [employer]- All Rights Reserved Assessment & Plan - Diagnosis (1) Neck abscess Is this a current diagnosis for this admission?: Yes Plan: Impression: Acute left neck abscess post IVDA, with retained foreign body consistent with a needle fragment; no evidence of sepsis. Recommendations: 1. I reviewed the above assessment with patient and family member. I suggested the patient be kept n.p.o. and taken to the operating room for incision drainage packing, debridement and removal of retained foreign body. This will be performed under general anesthesia. Patient will receive intravenous antibiotics after blood cultures obtained. She may require hospitalization for more than 24 hours. (2) Retained foreign body Is this a current diagnosis for this admission?: Yes (3) Heroin abuse Is this a current diagnosis for this admission?: Yes (4) Substance abuse Is this a current diagnosis for this admission?: Yes - Time Time Spent: 50 to 70 Minutes Critical Time spent with patient: Less than 15 minutes Medications reviewed and adjusted accordingly: Yes Anticipated discharge: Home - Inpatient Certification Based on my medical assessment, after consideration of the patient's comorbidities, presenting symptoms, or acuity I expect that the services needed warrant INPATIENT care.: Yes I certify that my determination is in accordance with my understanding of Medicare's requirements for reasonable and necessary INPATIENT services [42 CFR 412.3e].: Yes Medical Necessity: Need For IV Fluids, Need for Pain Control, Need for IV Antibiotics, Need for Surgery
[2019-01-30] MEDS ORDERED: VANCOMYCIN HCL 0 MG in DEXTROSE 5%-WATER 250 ML IV NR (08:30)
[2019-01-30] MEDS ORDERED: MIDAZOLAM 2 MG/2 ML INJ ONE (13:15)
[2019-01-30] MEDS ORDERED: PROPOFOL INJ 200 MG/20 ML VIAL IV ONE (13:15)
[2019-01-30] MEDS ORDERED: FENTANYL CITRATE INJ/PF 250 MCG/5 ML AMPULE ONE (13:15)
[2019-01-30] MEDS ORDERED: LIDOCAINE 0.5% INJ-PF (5 MG/ML) 50 ML SDV ONE (13:18)
[2019-01-30] MEDS ORDERED: BUPIVACAINE HCL 0.25 % INJ/PF (2.5 MG/1 ML) 30 ML VIAL ONE (13:18)
[2019-01-30] MEDS ORDERED: SUGAMMADEX SODIUM 200 MG/2 ML SDV IV ONE (13:55)
[2019-01-30] MEDS ORDERED: VANCOMYCIN HCL 750 MG in DEXTROSE 5%-WATER 250 ML IV SCH (14:00)
--- NOTE | 2019-01-30 14:03 | Operative Report ---
Operative Report DATE OF SURGERY: 01/30/19 PREOPERATIVE DIAGNOSIS: Left neck abscess and IV drug abuse with retained forei gn body consistent with needle POSTOPERATIVE DIAGNOSIS: Same with thrombosis of the left external jugular vein OPERATION: 1. Focused ultrasound of the left neck. 2. Extraction of foreign body consistent with fragment of 27-gauge needle. 3. Excisional debridement of skin and subcutaneous tissue. 4. Segmental excision of left external jugular v gabrielle SURGEON: NING JUAN ANESTHESIA: GA TISSUE REMOVED OR ALTERED: Foreign body left neck; skin, subcutaneous tissue; po rtion of left external jugular vein COMPLICATIONS: None ESTIMATED BLOOD LOSS: 15 cc INTRAOPERATIVE FINDINGS: See below PROCEDURE: The preop holding her to the main operating room where general anesthesia was induced via endotracheal intubation. The head was tilted to the right, left cervical neck exposed. The area was prepped and draped sterile fashion Surgical plan surgical timeout were conducted. We performed focused ultrasound of the left neck. The retained foreign body consistent with a fragment of a needle was identified successfully. Using hemostats, the 4 to 5 mm fragment of hypodermic needle consistent with 27-gauge was removed. The specimen was disposed of We now anesthetized the perimeter of the open wound. In addition to the open wound, there was several small necrotic areas of skin. All of these areas were excised to create a slightly oblong shaped 2 x 3 cm hole in the skin. Intraoperative specimens were sent for culture, Gram stain and sensitivity. Using blunt dissection, the subcutaneous loculations were broken up. Necrotic chunks of fatty tissue were removed with hemostat. Approximately 3 g of tissue were removed. I performed repeat focused ultrasound of the exposed left external jugular vein. There was no evidence of flow in the vein. I felt that it was in the patient's best interest to resect this portion of vein which was nonfunctional, and highly susceptible to both phlebitis. The proximal and distal ends of the exposed internal jugular vein were clamped, approximately 3 to 4 cm segment of the vein excised, sent to pathology for permanent analysis. Both proximal distal ends of the vein were ligated with 4-0 Prolene suture. The wound was irrigated again several times, then packed with iodoform packing. Gauze 4 x 4 applied. Patient tolerated the procedure well, extubated, taken recovery in stable condition.
[2019-01-30] MEDS ORDERED: FENTANYL CITRATE INJ/PF 100 MCG/2 ML AMPUL ONE (14:12)
[2019-01-30] MEDS: HYDROMORPHONE HCL INJ/PF 2 MG/ML AMPULE ONE ×2 (14:16→14:30)
[2019-01-30] MEDS ORDERED: LORAZEPAM INJ 2 MG/1 ML VIAL ONE (14:16)
[2019-01-30] MEDS ORDERED: ONDANSETRON HCL INJ/PF 4 MG/2 ML SDV IV PRN (14:30)
[2019-01-30] MEDS ORDERED: KETOROLAC TROMETHAMINE INJ/PF 30 MG/1 ML SDV IV PRN (14:30)
[2019-01-30] MEDS ORDERED: MORPHINE SULFATE 10 MG/ML INJ IV PRN (14:38)
[2019-01-30] MEDS ORDERED: MEPERIDINE HCL/PF INJ 25 MG/1 ML DISP.SYRIN IV PRN (14:38)
[2019-01-30] MEDS ORDERED: FENTANYL CITRATE INJ/PF 100 MCG/2 ML AMPUL IV PRN ×3 (14:38)
[2019-01-30] MEDS ORDERED: DIPHENHYDRAMINE HCL 50 MG/ML VIAL IV PRN (14:38)
[2019-01-30] MEDS ORDERED: OXYCODONE-ACETAMINOPHEN 5-325 MG TABLET PO PRN ×2 (14:38)
[2019-01-30] MEDS ORDERED: PROMETHAZINE HCL INJ 25 MG/1 ML VIAL IV PRN ×2 (14:38)
[2019-01-30] MEDS ORDERED: DEXAMETHASONE SOD PHOSPHATE INJ 4 MG/1 ML VIAL ONE (14:49)
[2019-01-30] MEDS ORDERED: ROCURONIUM BROMIDE INJ 50 MG/5 ML VIAL IV ONE (14:49)
[2019-01-30] MEDS ORDERED: NEOSTIGMINE METHYLSULFATE 10 MG/10 ML VIAL ONE (14:49)
[2019-01-30] MEDS ORDERED: LIDOCAINE 2% INJ-PF (20 MG/ML) 2 ML AMPUL ONE (14:49)
[2019-01-30] MEDS ORDERED: ONDANSETRON HCL INJ/PF 4 MG/2 ML SDV ONE (14:49)
[2019-01-30] MEDS ORDERED: GLYCOPYRROLATE 1 MG/5 ML VIAL ONE (14:49)
[2019-01-30] MEDS: VANCOMYCIN HCL 750 MG in DEXTROSE 5%-WATER 250 ML IV SCH (17:16)
[2019-01-30] MEDS: RINGERS SOLUTION,LACTATED 1,000 ML IV PRN (17:17)
[2019-01-30] MEDS ORDERED: NALOXONE HCL INJ/PF 0.4 MG/1 ML SDV ONE (18:24)
[2019-01-30] MEDS ORDERED: NALOXONE HCL INJ/PF 0.4 MG/1 ML SDV IV ONE (18:45)
[2019-01-31] MEDS: VANCOMYCIN HCL 750 MG in DEXTROSE 5%-WATER 250 ML IV SCH (02:05)
[2019-01-31] MEDS: RINGERS SOLUTION,LACTATED 1,000 ML IV PRN (07:22)
--- NOTE | 2019-01-31 08:55 | PDOC DISCHARGE SUMMARY ---
General - Admit/Disc Date/PCP Admission Date/Primary Care Provider: 01/30/19 08:51 GÓMEZ ODOM MD Discharge Date: 01/31/19 - Discharge Diagnosis (1) Neck abscess Is this a current diagnosis for this admission?: Yes (2) Retained foreign body Is this a current diagnosis for this admission?: Yes - Additional Information Resuscitation Status: Full Code Discharge Diet: As Tolerated Discharge Activity: Activity As Tolerated Home Medications: No Home Medications 01/30/19 History of Present Illness History of Present Illness: YUSRA WATSON is a 28 year old female admitted for a left neck abscess. She was taken to the operating room where drainage of her left neck abscess was performed with debridement of nonviable tissue. Patient was taken to the floor in stable condition after her operation. Hospital Course Hospital Course: The patient is done well after her surgery. Her erythema and induration are much improved. She is ambulating in the hallway. She is tolerating a diet. The patient is requesting discharge home. I feel she is medically stable for discharge. Discharge with Bactrim DS, 2 tabs p.o. twice daily. I have discussed dressing changes with the patient. She is comfortable with performing dressing changes at home, without the assistance of home health. I will have her follow-up with [facility] in 1 week for monitoring the left neck wound. Physical Exam Vital Signs: Temp Pulse Resp BP Pulse Ox 98.4 F 85 18 113/57 L 100 01/31/19 07:32 01/31/19 07:32 01/31/19 07:32 01/31/19 07:32 01/31/19 07:32 Intake & Output 01/30/19 01/31/19 02/01/19 06:59 06:59 06:59 Intake Total 3657 Output Total 0 Balance 3657 Weight 54 kg 54 kg Results Laboratory Results: 01/30/19 05:30 01/30/19 05:30 Impressions: Soft Tissue Neck CT 01/30/19 04:38 IMPRESSION: Abscess along the left side of the neck at the level of the thyroid cartilage. TECHNICAL DOCUMENTATION: Quality ID # 436: Final reports with documentation of one or more dose reduction techniques (e.g., Automated exposure control, adjustment of the mA and/or kV according to patient size, use of iterative reconstruction technique) copyright 2011 [employer]- All Rights Reserved Qualifiers - * PATIENT BEING DISCHARGED WITH ANY OF THE FOLLOWING DIAGNOSIS: No Acute Heart Failure - Is this a Heart Failure Patient?: No Plan Time Spent: Less than 30 Minutes
[2019-01-31 14:32] VITALS: BP 104/58
== END 2019-01-31 10:44 | disposition home or self-care (01) ==
LOC: ER 01:05 → EH 08:51 → 4N 10:42
PROVIDERS: ADMIT Surgery; ATTEND Surgery
PROC: 05B Upper Veins, Excision (ICD-10-PCS; 2019-01-30)
PROC: 0JB50ZZ Excision of Left Neck Subcutaneous Tissue and Fascia, Open Approach (ICD-10-PCS; 2019-01-30)
PROC: 0JC50ZZ Extirpation of Matter from Left Neck Subcutaneous Tissue and Fascia, Open Approach (ICD-10-PCS; principal; 2019-01-30 12:00)
DX: L02.11 Cutaneous abscess of neck (principal); M79.5 Residual foreign body in soft tissue; I82.C12 Acute embolism and thrombosis of left internal jugular vein; F11.10 Opioid abuse, uncomplicated; I77.6 Arteritis, unspecified; L03.221 Cellulitis of neck; R61 Generalized hyperhidrosis; F17.200 Nicotine dependence, unspecified, uncomplicated; R53.1 Weakness; R59.0 Localized enlarged lymph nodes
CPT/HCPCS: 36415; 87040; 87070; 87205; 84703; 85025; 87075; 87077; 80048; 87186; 88305 ×2; 70491; 00300; 10120; 37799; 11042; G0378 ×3; J2250; J3490 ×4; J1100; J3010; J1885; J2270; J2310; J2710; J1170; J2060; J2405; J7060 ×2; J7120 ×2; J2704; J3370 ×2; 300

== ENCOUNTER 2019-04-25 19:09 | Inpatient (IN) | payer SELFPAY ==
[2019-04-25] MEDS ORDERED: VANCOMYCIN HCL INJ 1000 MG VIAL IV ONE (20:13)
--- NOTE | 2019-04-25 20:14 | ER Document Report ---
ED Medical Screen (RME) - General Chief Complaint: Neck Swelling Stated Complaint: SWOLLEN NECK Time Seen by Provider: 04/25/19 20:11 Primary Care Provider: GÓMEZ ODOM MD [Primary Care Provider] - Follow up as needed Mode of Arrival: Ambulatory Notes: Patient with a large area of induration and overlying erythema to right side of neck. Patient reports fever at home of 104. Patient states she has had tenderness and swelling for the past 3 days. Patient does have a history of previous IV drug use in which she would inject in the neck. Patient states she has not used drugs in over a month. I have greeted and performed a rapid initial assessment of this patient. A comprehensive ED assessment and evaluation of the patient, analysis of test results and completion of the medical decision making process will be conducted by additional ED providers. TRAVEL OUTSIDE OF THE [place] IN LAST 30 DAYS: No - Related Data Allergies/Adverse Reactions: No Known Allergies Allergy (Unverified 10/18/18 07:48) Past Medical History Renal/ Medical History: Denies: Hx Peritoneal Dialysis Psychiatric Medical History: Denies: Hx Depression Past Surgical History: Reports: Other - D&C Physical Exam - Vital signs Vitals: Temp Pulse Resp BP Pulse Ox 98.0 F 99 16 119/70 100 04/25/19 19:28 04/25/19 19:28 04/25/19 19:28 04/25/19 19:28 04/25/19 19:28 - General Notes: Large erythematous tender indurated swollen area to right side of neck, no submental or sublingual swelling Course - Vital Signs Vital signs: Temp Pulse Resp BP Pulse Ox 98.0 F 99 16 119/70 100 04/25/19 19:28 04/25/19 19:28 04/25/19 19:28 04/25/19 19:28 04/25/19 19:28 Doctor's Discharge - Discharge Referrals: GÓMEZ ODOM MD [Primary Care Provider] - Follow up as needed
[2019-04-25 20:44] LABS: ABSOLUTE BASOPHILS # (AUTO) 0.1 10^3/uL (0.0-0.2); ABSOLUTE EOSINOPHILS # (AUTO) 0.2 10^3/uL (0.0-0.6); ABSOLUTE LYMPHOCYTES (AUTO) 2.5 10^3/uL (0.5-4.7); ABSOLUTE MONOCYTES (AUTO) 1.6 10^3/uL (0.1-1.4); ABSOLUTE NEUT (AUTO) 11.6 10^3/uL (1.7-8.2); BASOPHILS % (AUTO) 0.6 % (0-2); HEMATOCRIT 41.2 % (36.0-47.0); HEMOGLOBIN 13.4 g/dL (12.0-15.5); LYMPHOCYTES % (AUTO) 15.7 % (13-45); MEAN CORPUSCULAR HEMOGLOBIN 27.7 pg (27.0-33.4); MEAN CORPUSCULAR HGB CONC 32.4 g/dL (32.0-36.0); MEAN CORPUSCULAR VOLUME 85 fl (80-97); MONOCYTES % (AUTO) 10.3 % (3-13); PLATELET COUNT 341 10^3/uL (150-450); RED BLOOD COUNT 4.82 10^6/uL (3.72-5.28); SEGMENTED NEUTROPHILS % (AUTO) 72.4 % (42-78); TOTAL CELLS COUNTED % (AUTO) 100 %
[2019-04-25 21:00] LABS: ALBUMIN 4.1 g/dL (3.5-5.0); ALKALINE PHOSPHATASE 55 U/L (38-126); ANION GAP 8 (5-19); ASPARTATE AMINO TRANSFERASE 22 U/L (14-36); BILIRUBIN,DIRECT 0.1 mg/dL (0.0-0.4); BILIRUBIN,TOTAL 0.4 mg/dL (0.2-1.3); BLOOD UREA NITROGEN 6 mg/dL (7-20); CALCIUM 9.5 mg/dL (8.4-10.2); CARBON DIOXIDE 29 mmol/L (22-30); CHLORIDE 101 mmol/L (98-107); GLUCOSE 104 mg/dL (75-110); POTASSIUM 5.4 mmol/L (3.6-5.0); TOTAL PROTEIN 7.6 g/dL (6.3-8.2)
[2019-04-25] MEDS ORDERED: MORPHINE SULFATE 10 MG/ML INJ IV ONE ×2 (21:15→23:46)
--- NOTE | 2019-04-25 22:57 | RADIOLOGY REPORT (SQ) ---
EXAM DESCRIPTION: [facility]: CT NECK WITH IV CONTRAST CLINICAL HISTORY: 28 years Female; abscess R side of neck TECHNIQUE: CT soft tissue neck with contrast. All CT scans at this facility use dose modulation, iterative reconstruction, and/or weight based dosing when appropriate to reduce radiation dose to as low as reasonably achievable. COMPARISON: None. FINDINGS: In the mid lateral right neck, there is diffuse soft tissue edema with skin thickening. At the anterolateral margin of the midportion of the right sternocleidomastoid muscle there is a peripherally enhancing fluid collection 1.7 cm LR by 2.3 cm AP by 3 cm SI. This measurement includes an enhancing septation that runs partially through the fluid collection. The collection is in the soft tissues lateral to the muscle as well as directly involving the muscle. There are multiple reactive right-sided lymph nodes. No sheryl necrosis. Major arteries and veins of the neck remain patent. No airway compromise. Paranasal sinuses and mastoid air cells are clear. Epiglottis is normal. No parapharyngeal or retropharyngeal fluid collection/edema. IMPRESSION: 1. Abscess along the anterolateral margin of the right sternocleidomastoid muscle. 2. Reactive adenopathy and diffuse cellulitis in the right neck
--- NOTE | 2019-04-25 23:27 | ER Document Report ---
ED Skin Rash/Insect Bite/Abscs - General Chief Complaint: Skin Sore(s) Stated Complaint: SWOLLEN NECK Time Seen by Provider: 04/25/19 20:11 Primary Care Provider: GÓMEZ ODOM MD [Primary Care Provider] - Follow up as needed Mode of Arrival: Ambulatory TRAVEL OUTSIDE OF THE [place] IN LAST 30 DAYS: No - HPI Notes: This is a 28-year-old female who presents today with complaint of swelling of her right anterolateral neck for the past 3 days. Patient admits to history of IVDA with her right external jugular vein as a preferred site. However, she tells me that she has not used in about a month for a month and a half. She denies any fever or chills. She denies any trauma. Denies any other complaints. - Related Data Allergies/Adverse Reactions: No Known Allergies Allergy (Unverified 10/18/18 07:48) Past Medical History - Social History Smoking Status: Current Every Day Smoker Family History: Reviewed & Not Pertinent, Other - Unavailable from the patient. No family or friends present. Patient has suicidal ideation: No Patient has homicidal ideation: No Renal/ Medical History: Denies: Hx Peritoneal Dialysis Psychiatric Medical History: Reports: Hx Depression Past Surgical History: Reports: Other - D&C Review of Systems - Review of Systems Constitutional: denies: Fever Respiratory: denies: Cough Gastrointestinal: denies: Abdominal pain Musculoskeletal: Neck pain Skin: Other - Abscess -: Yes All other systems reviewed and negative Physical Exam - Vital signs Vitals: Temp Pulse Resp BP Pulse Ox 98.0 F 99 16 119/70 100 04/25/19 19:28 04/25/19 19:28 04/25/19 19:28 04/25/19 19:28 04/25/19 19:28 - HEENT Neck: Other - There is erythema, swelling and induration of the right anterolateral neck consistent with an abscess. I believe the site is likely the external jugular vein. Airways patent. - Respiratory Respiratory status: No respiratory distress Chest status: Nontender Breath sounds: Normal Chest palpation: Normal - Cardiovascular Rhythm: Regular Heart sounds: Normal auscultation Murmur: No - Abdominal Inspection: Normal Distension: No distension Bowel sounds: Normal Tenderness: Nontender Organomegaly: No organomegaly - Skin Skin Temperature: Warm - Right neck abscess as discussed in HEENT exam. Skin Moisture: Dry Skin Color: Normal Course - Re-evaluation Re-evalutation: 04/25/19 23:26 Clinical picture is suggestive of right neck abscess likely secondary to IVDA. Will get soft tissue CT neck. [id number] Patient's care discussed with Dr. Ponce, surgery. He will evaluate the patient at this time. Labs and CT reviewed and discussed. 04/25/19 23:40 Patient has been seen by the surgeon. Patient will be going to the operating room. - Vital Signs Vital signs: Temp Pulse Resp BP Pulse Ox 98.0 F 99 16 119/70 100 04/25/19 19:28 04/25/19 19:28 04/25/19 19:28 04/25/19 19:28 04/25/19 19:28 - Laboratory Result Diagrams: 04/25/19 20:30 04/25/19 20:30 Laboratory results interpreted by me: 04/25/19 04/25/19 20:30 20:30 WBC 16.0 H RDW 15.0 H Absolute Neuts (auto) 11.6 H Absolute Monos (auto) 1.6 H Potassium 5.4 H BUN 6 L Discharge - Discharge Clinical Impression: Cellulitis and abscess of neck Condition: Stable Disposition: ADMITTED INPATIENT Admitting Provider: Surgicalist Unit Admitted: OR Referrals: GÓMEZ ODOM MD [Primary Care Provider] - Follow up as needed
--- NOTE | 2019-04-25 23:39 | PDOC H&P ---
History of Present Illness Admission Date/PCP: GÓMEZ ODOM MD Patient complains of: neck pain History of Present Illness: YUSRA WATSON is a 28 year old female Patient with a large area of induration and overlying erythema to right side of neck. Patient reports fever at home of 104. Patient states she has had tenderness and swelling for the past 3 days. Patient does have a history of previous IV drug use in which she would inject in the neck. Patient states she has not used drugs in over a month Also complains of shaking chills Past Medical History Psychiatric Medical History: Reports: Depression Past Surgical History Past Surgical History: Reports: Other - D&C previous I&D of neck abscess left neck Social History Smoking Status: Current Every Day Smoker Frequency of Alcohol Use: None Hx Recreational Drug Use: Yes Drugs: Heroin, Marijuana Hx Prescription Drug Abuse: No Family History Family History: Reviewed & Not Pertinent, Other - Unavailable from the patient. No family or friends present. Parental Family History Reviewed: No Children Family History Reviewed: NA Sibling(s) Family History Reviewed.: NA Medication/Allergy Home Medications: No Home Medications 01/30/19 Allergies/Adverse Reactions: No Known Allergies Allergy (Unverified 10/18/18 07:48) Review of Systems Constitutional: PRESENT: anorexia, chills, fatigue Eyes: ABSENT: as per HPI, visual disturbances, other Ears: ABSENT: as per HPI, hearing changes, other Nose, Mouth, and Throat: PRESENT: sore throat Breasts: ABSENT: as per HPI, other Cardiovascular: ABSENT: as per HPI, chest pain, dyspnea on exertion, edema, orthropnea, palpitations, other Respiratory: ABSENT: as per HPI, cough, dyspnea, hemoptysis, sputum, other Gastrointestinal: ABSENT: as per HPI, abdominal pain, bloating, coffee ground emesis, constipation, diarrhea, dysphagia, heartburn, hematemesis, hematochezia, melena, nausea, vomiting, other Genitourinary: ABSENT: as per HPI, difficulty urinating, dysuria, hematuria, nocturia, other Musculoskeletal: ABSENT: as per HPI, back pain, deformity, joint swelling, muscle weakness, other Integumentary: PRESENT: diaphoresis Neurological: ABSENT: as per HPI, abnormal gait, abnormal movements, abnormal speech, confusion, convulsions, dizziness, focal weakness, frequent falls, lack of coordination, memory loss, numbness, paresthesias, restless legs, syncope, tingling, tremor(s), vertigo, weakness, other Psychiatric: ABSENT: as per HPI, anxiety, depression, hallucinations, homidical ideation, suicidal ideation, other Endocrine: ABSENT: as per HPI, cold intolerance, flushing, heat intolerance, menstrual abnormalities, polydipsia, polyphagia, polyuria, other Hematologic/Lymphatic: ABSENT: as per HPI, easy bleeding, easy bruising, lymphadenopathy, other Allergic/Immunologic: ABSENT: as per HPI, seasonal rhinorrhea, other Physical Exam Vital Signs: Temp Pulse Resp BP Pulse Ox 98.0 F 99 16 119/70 100 04/25/19 19:28 04/25/19 19:28 04/25/19 19:28 04/25/19 19:28 04/25/19 19:28 Intake & Output 04/24/19 04/25/19 04/26/19 06:59 06:59 06:59 Weight 54 kg General appearance: PRESENT: mild distress Head exam: PRESENT: normocephalic Eye exam: PRESENT: EOMI Ear exam: PRESENT: TM's normal bilaterally Mouth exam: PRESENT: moist Teeth exam: PRESENT: other Throat exam: PRESENT: other - Centimeter area of induration over the anterior sternocleidomastoid muscle on the right neck with surrounding cellulitis extending up and down the neck. Respiratory exam: PRESENT: clear to auscultation dorcas Cardiovascular exam: PRESENT: RRR Pulses: PRESENT: normal radial pulses, normal femoral pulses GI/Abdominal exam: PRESENT: soft Rectal exam: PRESENT: deferred Extremities exam: PRESENT: full ROM Musculoskeletal exam: PRESENT: full ROM Neurological exam: PRESENT: alert, awake, oriented to person, oriented to place Psychiatric exam: PRESENT: appropriate affect Skin exam: PRESENT: dry Results Laboratory Results: 04/25/19 20:30 04/25/19 20:30 04/25/19 04/25/19 04/25/19 20:30 20:30 20:30 WBC 16.0 H RBC 4.82 Hgb 13.4 Hct 41.2 MCV 85 MCH 27.7 MCHC 32.4 RDW 15.0 H Plt Count 341 Seg Neutrophils % 72.4 Sodium 138.3 Potassium 5.4 H Chloride 101 Carbon Dioxide 29 Anion Gap 8 BUN 6 L Creatinine 0.81 Est GFR ( Amer) > 60 Glucose 104 Calcium 9.5 Total Bilirubin 0.4 AST 22 Alkaline Phosphatase 55 Total Protein 7.6 Albumin 4.1 Serum HCG, Qual NEGATIVE Impressions: Soft Tissue Neck CT 04/25/19 20:12 IMPRESSION: 1. Abscess along the anterolateral margin of the right sternocleidomastoid muscle. 2. Reactive adenopathy and diffuse cellulitis in the right neck Assessment & Plan - Plan Summary Plan Summary: Patient with a large right neck abscess fever of 104 surrounding cellulitis Plan operative exploration incision and drainage of right neck abscess. Risks and benefits of been discussed with the patient which include bleeding infection pulmonary embolism stroke microinfarction specific to the operation she understands she could develop weakness in the right arm and shoulder from spinal accessory nerve injury weakness and down the right arm from injury to the brachial plexus. Thoracic duct injury lymphatic leak is also been discussed with her and she understands that he understands he may need additional surgery. These risks and benefits of been discussed with her she und erstands and agrees to proceed
[2019-04-25] MEDS ORDERED: VANCOMYCIN HCL 0 MG in DEXTROSE 5%-WATER 250 ML IV NR (23:45)
[2019-04-26] MEDS: KETOROLAC TROMETHAMINE INJ/PF 30 MG/1 ML SDV IV PRN ×2 (02:47→08:26)
[2019-04-26 06:03] LABS: ABSOLUTE BASOPHILS # (AUTO) 0.1 10^3/uL (0.0-0.2); ABSOLUTE EOSINOPHILS # (AUTO) 0.2 10^3/uL (0.0-0.6); ABSOLUTE LYMPHOCYTES (AUTO) 3.3 10^3/uL (0.5-4.7); ABSOLUTE MONOCYTES (AUTO) 1.7 10^3/uL (0.1-1.4); ABSOLUTE NEUT (AUTO) 11.5 10^3/uL (1.7-8.2); BASOPHILS % (AUTO) 0.7 % (0-2); EOSINOPHILS % (AUTO) 1.3 % (0-6); HEMATOCRIT 40.1 % (36.0-47.0); HEMOGLOBIN 13.1 g/dL (12.0-15.5); LYMPHOCYTES % (AUTO) 19.7 % (13-45); MEAN CORPUSCULAR HEMOGLOBIN 27.3 pg (27.0-33.4); MEAN CORPUSCULAR HGB CONC 32.6 g/dL (32.0-36.0); MEAN CORPUSCULAR VOLUME 84 fl (80-97); PLATELET COUNT 356 10^3/uL (150-450); RED BLOOD COUNT 4.78 10^6/uL (3.72-5.28); RED CELL DISTRIBUTION WIDTH 15.1 % (11.5-14.0); SEGMENTED NEUTROPHILS % (AUTO) 68.3 % (42-78); TOTAL CELLS COUNTED % (AUTO) 100 %; WHITE BLOOD COUNT 16.9 10^3/uL (4.0-10.5)
[2019-04-26 06:23] LABS: ANION GAP 6 (5-19); BLOOD UREA NITROGEN 6 mg/dL (7-20); CALCIUM 8.7 mg/dL (8.4-10.2); CARBON DIOXIDE 27 mmol/L (22-30); CHLORIDE 104 mmol/L (98-107); GLUCOSE 93 mg/dL (75-110)
[2019-04-26 06:36] LABS: POTASSIUM 3.7 mmol/L (3.6-5.0)
[2019-04-26] MEDS ORDERED: HYDROMORPHONE HCL INJ/PF 2 MG/ML AMPULE ONE (08:27)
[2019-04-26] MEDS ORDERED: MIDAZOLAM 2 MG/2 ML INJ ONE (08:28)
[2019-04-26] MEDS ORDERED: FENTANYL CITRATE INJ/PF 100 MCG/2 ML AMPUL ONE (08:28)
[2019-04-26] MEDS ORDERED: PROPOFOL INJ 200 MG/20 ML VIAL IV ONE (08:28)
[2019-04-26] MEDS ORDERED: FENTANYL CITRATE INJ/PF 100 MCG/2 ML AMPUL IV PRN ×3 (09:35)
[2019-04-26] MEDS ORDERED: DIPHENHYDRAMINE HCL 50 MG/ML VIAL IV PRN (09:35)
[2019-04-26] MEDS ORDERED: PROMETHAZINE HCL INJ 25 MG/1 ML VIAL IV PRN ×2 (09:35)
[2019-04-26] MEDS ORDERED: MEPERIDINE HCL/PF INJ 25 MG/1 ML DISP.SYRIN IV PRN (09:35)
--- NOTE | 2019-04-26 09:46 | Operative Report ---
Nonrecallable Operative Report DATE OF SURGERY: 04/26/19 PREOPERATIVE DIAGNOSIS: right neck abscess POSTOPERATIVE DIAGNOSIS: right neck abscess OPERATION: Incision and drainage of right neck abscess SURGEON: STEFANI CHIN ANESTHESIA: GA TISSUE REMOVED OR ALTERED: None COMPLICATIONS: None ESTIMATED BLOOD LOSS: 5 cc INTRAOPERATIVE FINDINGS: See note PROCEDURE: Patient brought to the operating room awake alert stable condition placed on the operating table in supine position induced under general anesthesia and intubated the right neck was prepped and draped in usual sterile fashion. After appropriate timeout and site verification and transverse incision was made over the abscess in the right anterior triangle of the neck. The abscess was pointing between the 2 bellies of the sternocleidomastoid mastoid muscle After the transverse incision was made large amount of pus exuded from the wound and this was sent for culture approximately 25 cc of pus creamy white exuded from the wound. The incision was carried down through the platysma muscle with Bovie cautery until identifying the abscess cavity. The abscess did not extend into the carotid sheath. There was no significant necrotic tissue at the abscess space. The wound was irrigated with normal saline suctioned dry and the packed with 1/2 inch iodoform packing strip. Patient tolerated the procedure well was awakened in the operating extubated transferred recovery in stable condition no complications sponge needle counts were correct x2
[2019-04-26] MEDS ORDERED: NALOXONE HCL INJ/PF 0.4 MG/1 ML SDV ONE (09:53)
[2019-04-26] MEDS: MORPHINE SULFATE 10 MG/ML INJ IV SCH ×5 (10:00→22:26)
[2019-04-26] MEDS ORDERED: ONDANSETRON HCL INJ/PF 4 MG/2 ML SDV ONE (12:35)
[2019-04-26] MEDS ORDERED: KETOROLAC TROMETHAMINE 60 MG/2 ML SDV ONE (12:35)
[2019-04-26] MEDS ORDERED: LIDOCAINE 2% INJ-PF (20 MG/ML) 2 ML AMPUL ONE (12:35)
[2019-04-26] MEDS: VANCOMYCIN HCL 1,000 MG in DEXTROSE 5%-WATER 250 ML IV SCH ×2 (13:58→22:25)
[2019-04-27] MEDS: MORPHINE SULFATE 10 MG/ML INJ IV SCH ×3 (05:29→08:16)
[2019-04-27] MEDS: KETOROLAC TROMETHAMINE INJ/PF 30 MG/1 ML SDV IV PRN (05:29)
--- NOTE | 2019-04-27 09:16 | PDOC DISCHARGE SUMMARY ---
General - Admit/Disc Date/PCP Admission Date/Primary Care Provider: 04/25/19 23:48 GÓMEZ ODOM MD Discharge Date: 04/27/19 - Discharge Diagnosis Final Diagnosis: right neck abscess - Assessment Summary: This is a 28-year-old female admitted with a right neck abscess. Patient underwent incision and drainage of the abscess yesterday. The dressing was changed to bedside today. The wound appears clean, without signs of ongoing purulence or erythema. Currently the patient is afebrile, and her pain is controlled. At this time, it is felt that she has reached maximal hospital benefit. She is at this time fit for discharge. - Additional Information Resuscitation Status: Full Code Discharge Diet: As Tolerated Discharge Activity: Balance Activity w/Rest Referrals: GÓMEZ ODOM MD [Primary Care Provider] - Follow up as needed Home Medications: No Home Medications 01/30/19 Additional Information: Discharge home. Diet as tolerated. Activity: Nonstrenuous. Follow-up with [facility] in 7 to 10 days. Bactrim DS, 2 tabs p.o. twice daily. Ibuprofen 800 mg p.o. 3 times daily with meals. Damp dressing changes with packing daily and as needed. Okay to shower, wash incision with soap and water daily. History of Present Illiness History of Present Illness: YUSRA WATSON is a 28 year old female Physical Exam Vital Signs: Temp Pulse Resp BP Pulse Ox 98.2 F 75 15 113/52 L 98 04/26/19 23:43 04/26/19 23:43 04/26/19 23:43 04/26/19 23:43 04/26/19 23:43 Intake & Output 04/26/19 04/27/19 04/28/19 06:59 06:59 06:59 Intake Total 0 1835 250 Output Total 800 105 Balance -800 1730 250 Weight 55.2 kg 55.1 kg Results Laboratory Results: WBC 16.9 10^3/uL (4.0-10.5) H 04/26/19 05:30 RBC 4.78 10^6/uL (3.72-5.28) 04/26/19 05:30 Hgb 13.1 g/dL (12.0-15.5) 04/26/19 05:30 Hct 40.1 % (36.0-47.0) 04/26/19 05:30 MCV 84 fl (80-97) 04/26/19 05:30 MCH 27.3 pg (27.0-33.4) 04/26/19 05:30 MCHC 32.6 g/dL (32.0-36.0) 04/26/19 05:30 RDW 15.1 % (11.5-14.0) H 04/26/19 05:30 Plt Count 356 10^3/uL (150-450) 04/26/19 05:30 Lymph % (Auto) 19.7 % (13-45) 04/26/19 05:30 [place] % (Auto) 10.0 % (3-13) 04/26/19 05:30 Eos % (Auto) 1.3 % (0-6) 04/26/19 05:30 Baso % (Auto) 0.7 % (0-2) 04/26/19 05:30 Absolute Neuts (auto) 11.5 10^3/uL (1.7-8.2) H 04/26/19 05:30 Absolute Lymphs (auto) 3.3 10^3/uL (0.5-4.7) 04/26/19 05:30 Absolute Monos (auto) 1.7 10^3/uL (0.1-1.4) H 04/26/19 05:30 Absolute Eos (auto) 0.2 10^3/uL (0.0-0.6) 04/26/19 05:30 Absolute Basos (auto) 0.1 10^3/uL (0.0-0.2) 04/26/19 05:30 Seg Neutrophils % 68.3 % (42-78) 04/26/19 05:30 Sodium 136.6 mmol/L (137-145) L 04/26/19 05:30 Potassium 3.7 mmol/L (3.6-5.0) D 04/26/19 05:30 Chloride 104 mmol/L (98-107) 04/26/19 05:30 Carbon Dioxide 27 mmol/L (22-30) 04/26/19 05:30 Anion Gap 6 (5-19) 04/26/19 05:30 BUN 6 mg/dL (7-20) L 04/26/19 05:30 Creatinine 0.63 mg/dL (0.52-1.25) 04/26/19 05:30 Est GFR ( Amer) > 60 (>60) 04/26/19 05:30 Est GFR (MDRD) Non-Af > 60 (>60) 04/26/19 05:30 Glucose 93 mg/dL (75-110) 04/26/19 05:30 Calcium 8.7 mg/dL (8.4-10.2) 04/26/19 05:30 Total Bilirubin 0.4 mg/dL (0.2-1.3) 04/25/19 20:30 Direct Bilirubin 0.1 mg/dL (0.0-0.4) 04/25/19 20:30 Neonat Total Bilirubin Not Reportable 04/25/19 20:30 Neonat Direct Bilirubin Not Reportable 04/25/19 20:30 Neonat Indirect Bili Not Reportable 04/25/19 20:30 AST 22 U/L (14-36) 04/25/19 20:30 ALT 29 U/L (<35) 04/25/19 20:30 Alkaline Phosphatase 55 U/L (38-126) 04/25/19 20:30 Total Protein 7.6 g/dL (6.3-8.2) 04/25/19 20:30 Albumin 4.1 g/dL (3.5-5.0) 04/25/19 20:30 Serum HCG, Qual NEGATIVE (NEGATIVE) 04/25/19 20:30 Impressions: Soft Tissue Neck CT 04/25/19 20:12 IMPRESSION: 1. Abscess along the anterolateral margin of the right sternocleidomastoid muscle. 2. Reactive adenopathy and diffuse cellulitis in the right neck
[2019-04-27 09:33] VITALS: BP 106/60
== END 2019-04-27 11:00 | disposition home or self-care (01) | DRG 603 ==
LOC: ER 19:09 → EH 23:48 → 4N 04-26 02:30
PROVIDERS: ADMIT Surgery; ATTEND Surgery
PROC: 0J943ZZ Drainage of Right Neck Subcutaneous Tissue and Fascia, Percutaneous Approach (ICD-10-PCS; principal; 2019-04-26 09:00)
DX: L02.11 Cutaneous abscess of neck (principal); L03.221 Cellulitis of neck; F32.9 Major depressive disorder, single episode, unspecified; F17.210 Nicotine dependence, cigarettes, uncomplicated
CPT/HCPCS: 300; 36415; 70491; 80048; 80053; 84703; 85025; 87040; 87070; 87077; 87205; 96365; 96375; 96376; 99285; J1170; J1885; J2250; J2270; J2310; J2405; J2704; J3010; J3370; J3490; J7060